=== PATIENT | female | born 2000 | race African-American/Black ===

== ENCOUNTER 2021-08-09 18:23 | Emergency (ER) | payer SELFPAY ==
--- OUTSIDE RECORDS SUMMARY | 2021-08-09 18:29 | XMS REPORT | Continuity of Care Document ---
:2000 Author Organization [facility] t Address [address] [place] [address] Care Team Providers Name Role Phone Pcp, Patient Does Not Have A Primary Care Physician [phone] Aristides CASTORENA Attending Clinician Eleazar MENDEZ Attending Clinician ELEAZAR Attending Clinician Unavailable Doctor Unassigned, Name Attending Clinician Unavailable Fady ELLIOTT Attending Clinician Unavailable Provider, Urgent Care Attending Clinician Unavailable Mariam LANIER Attending Clinician MARIAM Attending Clinician Unavailable Trent VILLASENOR Attending Clinician Unavailable Ang Magallanes DO Attending Clinician Heather MENDEZ Attending Clinician HEATHER Attending Clinician Unavailable Rafa LANIER Attending Clinician Khalif MENDEZ Attending Clinician Fady Guevara Attending Clinician Cassi DANIELLE, A Attending Clinician Unavailable Major LANIER Attending Clinician Princess EARL, S Attending Clinician Payers Payer Name Policy Type Policy Number Effective Date Expiration Date S ource [employer] [place] [id number] 2015 00:00:00 [employer] [place] [id number] 2017 EMPLOYEE PLAN 00:00:00 Problems Condition Condition Condition Status Onset Resolution Last Treating Co mments Source Name Details Category Date Date Treatment Clinician Date Chlamydia Chlamydia Disease Active Overview: Univers 12-20 Formattin ity of 00:00: g of this [place] 00 note Medical might be Branch different from the original. rodolfo pending Supervisio Supervisio Disease Active U nivers n of n of 12-20 [place] of high[place] [facility] Anxiety Anxiety Disease Active Univers 01-08 ity of 00:00: [place] 00 [facility] Allergies, Adverse Reactions, Alerts Allergy Allergy Status Severity Reaction(s) Onset Inactive Treating Comm ents Source Name Type Date Date Clinician No Known DA Active U 2018-08 [facility] [place] NO KNOWN Drug Active Univers ALLERGIE Class ity of S [facility] Social History Social Habit Start Date Stop Date Quantity Comments Source Exposure to Unable to assess Univers ity of SARS-CoV-2 (event) [facility] Alcohol intake 2021-05-24 2021-05-24 0 /d University of 00:00:00 00:00:00 [facility] Cigarettes smoked 2018-12-18 2018-12-18 Univers ity of current (pack per 00:00:00 00:00:00 [facility] ) - Reported Branch Tobacco use and 2018-12-18 2018-12-18 Never used Universit y of exposure 00:00:00 00:00:00 [facility] History of tobacco 2016-12-18 2017-12-18 Cigarette Smoker University of use 00:00:00 00:00:00 [facility] Sex Assigned At 2000 2000 Universit y of 00:00:00 00:00:00 [facility] Smoking Status Start Date Stop Date Source Former smoker 2018-12-18 00:00:2018-12-18 00:00:00 Universi ty of [facility] Medications Ordered Filled Start Stop Current Ordering Indication Dosage Frequency Signature Comments Components Source Medication Medication Date Date Medication? Clinician (SIG) Name Name No known 2020-08 No Univers medications 0-05 ity of 19:04: [place] [facility] SERTraline 2020- No 25mg Take 25 mg Univers (ZOLOFT) 25 02-23 by mouth ity of mg tablet 21:19: 00:00 daily. [place] 09 : [facility] SERTraline 2020- No 25mg Take 25 mg Univers (ZOLOFT) 25 02-23 by mouth ity of mg tablet 21:19: 00:00 daily. [place] 09 : [facility] bromphenira 2020- No [id number] 5mL Take 5 mL Univers mine-pseudo 11-23- by mouth 4 i ty of ephedrine-D 00:00: 04:59 (four) [place] as M (BROMFED 00 :00 times Medical DM) 2-30-10 daily as Bran ch mg/5 mL needed for syrup Congestion /Allergies , Cold symptoms or Cough for up to 10 days. methylPREDN 2020- No [id number] Take by Univers ISolone 4 11-2313 mouth ity of mg tablets 00:00: 04:59 SEE-INSTRU [place] 00 :00 CTIONS for Medical 6 days. Branch follow package directions clotrimazol 2020- Yes [id number] Apply 5 Univers e 1 % 2-22 drops to ity of solution 00:00: the left [place] [address] ear Medical nightly Branch for 1 week. clotrimazol 2020-0 Yes [id number] Apply 5 Univers e 1 % 2-22 drops to ity of solution 00:00: the [place] [address] ear Medical nightly [place] for 1 week. clotrimazol 2020- Yes [id number] Apply 5 Univers e 1 % 2-22 drops to ity of solution 00:00: the [place] [address] ear Medical nightly [place] for 1 week. clotrimazol 2020- Yes [id number] Apply 5 Univers e 1 % 2-22 drops to ity of solution 00:00: the [place] [address] ear Medical nightly Branch for 1 week. clotrimazol Yes [id number] Apply 5 Univers e 1 % 2-22 drops to ity of solution 00:00: the left [place] 00 ear Medical nightly Branch for 1 week. clotrimazol 2020- No [id number] Apply 5 Univers e 1 % 2-22 07-07 drops to ity of solution 00:00: 00:00 the left [place] 00 :00 ear Medical nightly Branch for 1 week. clotrimazol 2020- No [id number] Apply 5 Univers e 1 % 2-22 -07 drops to ity of solution 00:00: 00:00 the left [place] 00 :00 ear Medical nightly Branch for 1 week. predniSONE 2020- No [id number] 40mg Take 2 Univers 20 mg 2-17 02-23 tablets by ity of tablet 00:00: 05:59 mouth [place] 00 :00 daily for Medical 5 days. Branch predniSONE 2020- No [id number] 40mg Take 2 Univers 20 mg 2-17 02-23 tablets by ity of tablet 00:00: 05:59 mouth [place] 00 :00 daily for Medical 5 days. Branch predniSONE 2020- No [id number] 40mg Take 2 Univers 20 mg 2-17 02-23 tablets by ity of tablet 00:00: 05:59 mouth [place] 00 :00 daily for Medical 5 days. Branch acetaminoph 2020- No 1{tbl} 1 tablet, Univers en-codeine 10-05 Oral, ity of (TYLENOL 21:00: 21:00 ONCE, 1 [place] #3) 300-30 00 :00 dose, Tue Medi asia mg tablet 1 10/05/20 at Br anch tablet 1500, KADIE clindamycin 2020- No 600mg 600 mg, IV Univers in 5 % 10-05 Piggyback, ity of dextrose 20:45: 21:15 ONCE, 1 [place] (CLEOCIN) 00 :00 dose, Tue Medic al 600 mg/50 10/05/20 at Bran ch mL IV 1445, 50 piggyback mL
Reas RTU 600 mg on for Anti-Infec tive: Documented Infection< br>Documen indigo Infection Site: HEENT
D uration of Therapy: 7 days
Re stricted use approved by: ED PROVIDER<b r>Reubenti on for Clindamyci n use: [employer] iohexol No 100mL 100 mL, Unive rs (OMNIPAQUE 10-05 Intravenou it y of 350 19:00: 19:00 s, ONCE, 1 [place] BULK-100 00 :00 dose, Tue Medica l mL) 10/05/20 at [place] injection 1300, 100 mL Routine maalox:diph No 15mL 15 mL, Uni vers enhydrAMINE 10-05 Oral, ity of :lidocaine 18:00: 18:22 ONCE, 1 [place] as 2 % viscous 00 :00 dose, Tue Med ical 1:1:1 10/05/20 at [place] (FIRST-MOUT 1200, KADIE HWASH BLM) oral suspension 15 mL ketorolac No 30mg 30 mg, Unive rs (TORADOL) 10-05 Slow IV ity of injection 17:15: 18:04 Push, [place] 30 mg 00 :00 ONCE, 1 Medical dose, [facility] 10/05/20 at 1115, KADIE
Fa culty member approving Restricted medication : EMERGENCY ROOM, dexamethaso No 10mg 10 mg, IV Univers ne 10-05 Push, ity of (DECADRON 17:15: 18:13 ONCE, 1 [place] PHOSPHATE[place] 00 :00 dose, Tue Medi asia injection 10/05/20 at Bran ch 10 mg 1115, STAT clindamycin 2020- No [id number] 450mg Take 3 Univers 150 mg 10-05 capsules ity of capsule 00:00: 05:59 by mouth 3 [place] 00 :00 (three) Medical times Branch daily for 10 days. clindamycin 2020- No [id number] 450mg Take 3 Univers 150 mg 10-05 capsules ity of capsule 00:00: 05:59 by mouth 3 [place] 00 :00 (three) Medical times Branch daily for 10 days. clindamycin 0 2020- No [id number] 450mg Take 3 Univers 150 mg 10-05 -27 capsules ity of capsule 00:00: 05:59 by mouth 3 [place] 00 :00 (three) Medical times Branch daily for 10 days. acetaminoph 2020- No [id number] 1{tbl} Take 1 U nivers en-codeine 2-16 -24 tablet by ity of 300-30 mg 00:00: 05:59 mouth [place] tablet 00 :00 every 6 Medical (six) Branch hours as needed for Pain (scale 7-10) for up to 7 days. Indication s: acute pain acetaminoph 2020- No [id number] 1{tbl} Take 1 U nivers en-codeine 2-16 -24 tablet by ity of 300-30 mg 00:00: 05:59 mouth [place] tablet 00 :00 every 6 Medical (six) Branch hours as needed for Pain (scale 7-10) for up to 7 days. Indication s: acute pain acetaminoph 2020- No [id number] 1{tbl} Take 1 U nivers en-codeine 2-16 -24 tablet by ity of 300-30 mg 00:00: 05:59 mouth [place] tablet 00 :00 every 6 Medical (six) Branch hours as needed for Pain (scale 7-10) for up to 7 days. Indication s: acute pain SERTraline Yes 25mg Take 25 mg U nivers (ZOLOFT) 25 2-11 by mouth ity of mg tablet 00:14: daily. [address] SERTraline Yes 25mg Take 25 mg U nivers (ZOLOFT) 25 2-11 by mouth ity of mg tablet 00:14: daily. [address] SERTraline 0 Yes 25mg Take 25 mg U nivers (ZOLOFT) 25 2-11 by mouth ity of mg tablet 00:14: daily. [address] SERTraline 0 Yes 25mg Take 25 mg U nivers (ZOLOFT) 25 2-11 by mouth ity of mg tablet 00:14: daily. [address] SERTraline Yes 25mg Take 25 mg U nivers (ZOLOFT) 25 2-11 by mouth ity of mg tablet 00:14: daily. [address] SERTraline Yes 25mg Take 25 mg U nivers (ZOLOFT) 25 2-11 by mouth ity of mg tablet 00:14: daily. [address] SERTraline Yes 25mg Take 25 mg U nivers (ZOLOFT) 25 2-11 by mouth ity of mg tablet 00:14: daily. [address] SERTraline Yes 25mg Take 25 mg U nivers (ZOLOFT) 25 2-11 by mouth ity of mg tablet 00:14: daily. [address] SERTraline Yes 25mg Take 25 mg U nivers (ZOLOFT) 25 2-11 by mouth ity of mg tablet 00:14: daily. [address] amoxicillin 2020- No [id number] 500mg Take 1 Univers 500 mg 09-27 tablet by ity of tablet 00:00: 05:59 mouth 2 [place] 00 :00 (two) Medical times Branch daily for 10 days. amoxicillin No [id number] 500mg Take 1 Univers 500 mg 09-27 tablet by ity of tablet 00:00: 05:59 mouth 2 [place] 00 :00 (two) Medical times Branch daily for 10 days. amoxicillin No [id number] 500mg Take 1 Univers 500 mg 09-27 tablet by ity of tablet 00:00: 05:59 mouth 2 [place] 00 :00 (two) Medical times Branch daily for 10 days. amoxicillin 2020- No [id number] 500mg Take 1 Univers 500 mg 09-27 tablet by ity of tablet 00:00: 05:59 mouth 2 [place] 00 :00 (two) Medical times Branch daily for 10 days. maalox:diph 2020- No [id number] 10mL Take 10 mL Univers enhydrAMINE 09-27 by mouth 3 i ty of :lidocaine 00:00: 05:59 (three) [place] 2 % viscous 00 :00 times Medical 1:1:1 daily as Branch needed for Oral mucositis for up to 5 days. carbamide 2020- No [id number] 5[drp] Place 5 Univers peroxide 09-27 [id number] Drops in ity o f (DEBROX) 00:00: 05:59 both ears [place] as 6.5 % otic 00 :00 2 (two) Medica l solution times Branch daily for 5 days. maalox:diph 2020- No [id number] 10mL Take 10 mL Univers enhydrAMINE 09-27 by mouth 3 i ty of :lidocaine 00:00: 05:59 (three) [place] 2 % viscous 00 :00 times Medical 1:1:1 daily as Branch needed for Oral mucositis for up to 5 days. carbamide 2020- No [id number] 5[drp] Place 5 Univers peroxide 09-27 [id number] Drops in ity o f (DEBROX) 00:00: 05:59 both ears [place] 6.5 % otic 00 :00 2 (two) Medica l solution times Branch daily for 5 days. cyclobenzap 2019-08- No 10mg 10 mg, Uni vers rine 0-18 10-18 Oral, ONCE ity of (FLEXERIL) 21:00: 20:34 NOW, 1 [place] tablet 10 00 :00 dose, Sun Medic al mg 06/06/20 Branch at 1600, KADIE ketorolac 2019-08- No 60mg 60 mg, Unive rs (TORADOL) 0-18 10-18 Intramuscu ity of injection 21:00: 20:34 [place], ONCE, [place] 60 mg 00 :00 1 dose, Medical Sun Branch 06/06/20 at 1600, KADIE
Fa culty member approving Restricted medication : EMERGENCY ROOM, dexamethaso 2019-08- No 10mg 10 mg, Uni vers ne 0-18 10-18 Intramuscu ity of (DECADRON 21:00: 20:35 lar, ONCE, [place] PHOSPHATE) 00 :00 1 dose, Medica l injection Sun Branch 10 mg 06/06/20 at 1600, STAT ibuprofen 2019-08 Yes [id number] 800mg Take 1 U nivers 800 mg 0-18 tablet by ity of tablet 00:00: mouth [place] 00 every 8 Medical (eight) Branch hours as needed for Pain (scale 4-6). cyclobenzap 2019-08 Yes [id number] 10mg Take 1 Univers rine 10 mg 0-18 tablet by ity of tablet 00:00: mouth 3 [place] 00 (three) Medical times Branch daily as needed for Muscle Spasms. ibuprofen 2020-1 Yes [id number] 800mg Take 1 U nivers 800 mg 0-18 tablet by ity of tablet 00:00: mouth [place] 00 every 8 Medical (eight) Branch hours as needed for Pain (scale 4-6). cyclobenzap 2020-1 Yes [id number] 10mg Take 1 Univers rine 10 mg 0-18 tablet by ity of tablet 00:00: mouth 3 [place] 00 (three) Medical times Branch daily as needed for Muscle Spasms. ibuprofen 2020-1 Yes [id number] 800mg Take 1 U nivers 800 mg 0-18 tablet by ity of tablet 00:00: mouth [place] 00 every 8 Medical (eight) Branch hours as needed for Pain (scale 4-6). cyclobenzap 2020-1 Yes [id number] 10mg Take 1 Univers rine 10 mg 0-18 tablet by ity of tablet 00:00: mouth 3 [place] 00 (three) Medical times Branch daily as needed for Muscle Spasms. ibuprofen 2020-1 Yes [id number] 800mg Take 1 U nivers 800 mg 0-18 tablet by ity of tablet 00:00: mouth [place] 00 every 8 Medical (eight) Branch hours as needed for Pain (scale 4-6). cyclobenzap 2020-1 Yes [id number] 10mg Take 1 Univers rine 10 mg 0-18 tablet by ity of tablet 00:00: mouth 3 00 (three) Medical times Branch daily as needed for Muscle Spasms. ibuprofen 2020-1 Yes [id number] 800mg Take 1 U nivers 800 mg 0-18 tablet by ity of tablet 00:00: mouth [place] 00 every 8 Medical (eight) Branch hours as needed for Pain (scale 4-6). cyclobenzap 2020-1 Yes [id number] 10mg Take 1 Univers rine 10 mg 0-18 tablet by ity of tablet 00:00: mouth 3 [place] 00 (three) Medical times Branch daily as needed for Muscle Spasms. ibuprofen 2020-1 Yes [id number] 800mg Take 1 U nivers 800 mg 0-18 tablet by ity of tablet 00:00: mouth [place] 00 every 8 Medical (eight) Branch hours as needed for Pain (scale 4-6). cyclobenzap 2020-1 Yes [id number] 10mg Take 1 Univers rine 10 mg 0-18 tablet by ity of tablet 00:00: mouth 3 [place] 00 (three) Medical times Branch daily as needed for Muscle Spasms. ibuprofen 2019- Yes [id number] 800mg Take 1 U nivers 800 mg 0-18 tablet by ity of tablet 00:00: mouth [place] 00 every 8 Medical (eight) Branch hours as needed for Pain (scale 4-6). cyclobenzap 2019- Yes [id number] 10mg Take 1 Univers rine 10 mg 0-18 tablet by ity of tablet 00:00: mouth 3 [place] 00 (three) Medical times Branch daily as needed for Muscle Spasms. ibuprofen 2019-08 Yes [id number] 800mg Take 1 U nivers 800 mg 0-18 tablet by ity of tablet 00:00: mouth [place] 00 every 8 Medical (eight) Branch hours as needed for Pain (scale 4-6). cyclobenzap 2019- Yes [id number] 10mg Take 1 Univers rine 10 mg 0-18 tablet by ity of tablet 00:00: mouth 3 00 (three) Medical times Branch daily as needed for Muscle Spasms. ibuprofen 2019-08 Yes [id number] 800mg Take 1 U nivers 800 mg 0-18 tablet by ity of tablet 00:00: mouth [place] 00 every 8 Medical (eight) Branch hours as needed for Pain (scale 4-6). cyclobenzap 2019- Yes [id number] 10mg Take 1 Univers rine 10 mg 0-18 tablet by ity of tablet 00:00: mouth 3 00 (three) Medical times Branch daily as needed for Muscle Spasms. ibuprofen 2019- Yes [id number] 800mg Take 1 U nivers 800 mg 0-18 tablet by ity of tablet 00:00: mouth [place] 00 every 8 Medical (eight) Branch hours as needed for Pain (scale 4-6). cyclobenzap 2019- Yes [id number] 10mg Take 1 Univers rine 10 mg 0-18 tablet by ity of tablet 00:00: mouth 3 00 (three) Medical times Branch daily as needed for Muscle Spasms. ibuprofen 2019-08- No [id number] 800mg Take 1 Univers 800 mg 0-18 07-07 tablet by ity of tablet 00:00: 00:00 mouth [place] 00 :00 every 8 Medical (eight) Branch hours as needed for Pain (scale 4-6). cyclobenzap 2019-08- No [id number] 10mg Take 1 Univers rine 10 mg 0-18 07-07 tablet by ity of tablet 00:00: 00:00 mouth 3 [place] 00 :00 (three) Medical times Branch daily as needed for Muscle Spasms. ibuprofen 2019-08- No [id number] 800mg Take 1 Univers 800 mg 0-18 07-07 tablet by ity of tablet 00:00: 00:00 mouth [place] 00 :00 every 8 Medical (eight) Branch hours as needed for Pain (scale 4-6). cyclobenzap 2019-08- No [id number] 10mg Take 1 Univers rine 10 mg 0-18 07-07 tablet by ity of tablet 00:00: 00:00 mouth 3 [place] 00 :00 (three) Medical times Branch daily as needed for Muscle Spasms. SERTraline 2020-0 Yes 25mg Take 25 mg U nivers (ZOLOFT) 25 8-11 by mouth ity of mg tablet 15:12: daily. [address] SERTraline 2020-0 Yes 25mg Take 25 mg U nivers (ZOLOFT) 25 8-11 by mouth ity of mg tablet 15:12: daily. [address] SERTraline 2020-0 Yes 25mg Take 25 mg U nivers (ZOLOFT) 25 8-11 by mouth ity of mg tablet 15:12: daily. [address] SERTraline 2020-0 Yes 25mg Take 25 mg U nivers (ZOLOFT) 25 8-11 by mouth ity of mg tablet 15:12: daily. [address] amoxicillin 2020-0 Yes [id number] 875mg Take 1 Univers 875 mg 7-11 tablet by ity of tablet 00:00: mouth 2 [place] 00 (two) Medical times Branch daily. amoxicillin 2020-0 Yes [id number] 875mg Take 1 Univers 875 mg 7-11 tablet by ity of tablet 00:00: mouth 2 [place] 00 (two) Medical times Branch daily. amoxicillin 2020-0 Yes [id number] 875mg Take 1 Univers 875 mg 7-11 tablet by ity of tablet 00:00: mouth 2 [place] 00 (two) Medical times Branch daily. amoxicillin 2020-0 Yes [id number] 875mg Take 1 Univers 875 mg 7-11 tablet by ity of tablet 00:00: mouth 2 [place] 00 (two) Medical times Branch daily. amoxicillin 2020-0 Yes [id number] 875mg Take 1 Univers 875 mg 7-11 tablet by ity of tablet 00:00: mouth 2 [place] 00 (two) Medical times Branch daily. amoxicillin 2020-0 Yes [id number] 875mg Take 1 Univers 875 mg 7-11 tablet by ity of tablet 00:00: mouth 2 [place] 00 (two) Medical times Branch daily. predniSONE 2020-0 2020- No [id number] 40mg Take 2 U nivers 20 mg 7-11 07-17 tablets by ity of tablet 00:00: 04:59 mouth [place] 00 :00 every Medical morning Branch for 5 days. predniSONE 2020-0 2020- No [id number] 40mg Take 2 U nivers 20 mg 7-11 07-17 tablets by ity of tablet 00:00: 04:59 mouth [place] 00 :00 every Medical morning Branch for 5 days. doxylamine- Yes [id number] 2{tbl} Take 2 Univers pyridoxine, 5-21 tablets by it y of vit B6, 00:00: mouth at [place] ([facility]) 00 bedtime as Med ical 10-10 mg needed for Branc h per tablet Nausea and Vomiting (N/V). doxylamine- Yes [id number] 2{tbl} Take 2 Univers pyridoxine, 5-21 tablets by it y of vit B6, 00:00: mouth at [place] ([facility]) 00 bedtime as Med ical 10-10 mg needed for Branc h per tablet Nausea and Vomiting (N/V). doxylamine- Yes [id number] 2{tbl} Take 2 Univers pyridoxine, 5-21 tablets by it y of vit B6, 00:00: mouth at [place] ([facility] 00 bedtime as Med ical 10-10 mg needed for Branc h per tablet Nausea and Vomiting (N/V). doxylamine- Yes [id number] 2{tbl} Take 2 Univers pyridoxine, 5-21 tablets by it y of vit B6, 00:00: mouth at [place] ([facility] 00 bedtime as Med ical 10-10 mg needed for Branc h per tablet Nausea and Vomiting (N/V). doxylamine- Yes [id number] 2{tbl} Take 2 Univers pyridoxine, 5-21 tablets by it y of vit B6, 00:00: mouth at [place] ([facility]) 00 bedtime as Med ical 10-10 mg needed for Branc h per tablet Nausea and Vomiting (N/V). doxylamine- Yes [id number] 2{tbl} Take 2 Univers pyridoxine, 5-21 tablets by it y of vit B6, 00:00: mouth at [place] [facility] bedtime as Med ical 10-10 mg needed for Branc h per tablet Nausea and Vomiting (N/V). doxylamine- Yes [id number] 2{tbl} Take 2 Univers pyridoxine, 5-21 tablets by it y of vit B6, 00:00: mouth at [place] ([facility]) 00 bedtime as Med ical 10-10 mg needed for Branc h per tablet Nausea and Vomiting (N/V). doxylamine- Yes [id number] 2{tbl} Take 2 Univers pyridoxine, 5-21 tablets by it y of vit B6, 00:00: mouth at [place] ([facility]) 00 bedtime as Med ical 10-10 mg needed for Branc h per tablet Nausea and Vomiting (N/V). doxylamine- Yes [id number] 2{tbl} Take 2 Univers pyridoxine, 5-21 tablets by it y of vit B6, 00:00: mouth at [place] ([facility]) 00 bedtime as Med ical 10-10 mg needed for Branc h per tablet Nausea and Vomiting (N/V). doxylamine- Yes [id number] 2{tbl} Take 2 Univers pyridoxine, 5-21 tablets by it y of vit B6, 00:00: mouth at [place] ([facility]) 00 bedtime as Med ical 10-10 mg needed for Branc h per tablet Nausea and Vomiting (N/V). doxylamine- Yes [id number] 2{tbl} Take 2 Univers pyridoxine, 5-21 tablets by it y of vit B6, 00:00: mouth at [place] ([facility]) 00 bedtime as Med ical 10-10 mg needed for Branc h per tablet Nausea and Vomiting (N/V). doxylamine- Yes [id number] 2{tbl} Take 2 Univers pyridoxine, 5-21 tablets by it y of vit B6, 00:00: mouth at [facility]) 00 bedtime as Med ical 10-10 mg needed for Branc h per tablet Nausea and Vomiting (N/V). doxylamine- Yes [id number] 2{tbl} Take 2 Univers pyridoxine, 5-21 tablets by it y of vit B6, 00:00: mouth at [place] ([facility]) 00 bedtime as Med ical 10-10 mg needed for Branc h per tablet Nausea and Vomiting (N/V). doxylamine- Yes [id number] 2{tbl} Take 2 Univers pyridoxine, 5-21 tablets by it y of vit B6, 00:00: mouth at [facility]) 00 bedtime as Med ical 10-10 mg needed for Branc h per tablet Nausea and Vomiting (N/V). doxylamine- Yes [id number] 2{tbl} Take 2 Univers pyridoxine, 5-21 tablets by it y of vit B6, 00:00: mouth at [facility]) 00 bedtime as Med ical 10-10 mg needed for Branc h per tablet Nausea and Vomiting (N/V). doxylamine- 2020- No [id number] 2{tbl} Take 2 Univers pyridoxine, 5-21 07-07 tablets by i ty of vit B6, 00:00: 00:00 mouth at [place] ([facility]) 00 :00 bedtime as Med ical 10-10 mg needed for Branc h per tablet Nausea and Vomiting (N/V). doxylamine- 2020- No [id number] 2{tbl} Take 2 Univers pyridoxine, 5-21 07-07 tablets by i ty of vit B6, 00:00: 00:00 mouth at [facility]) 00 :00 bedtime as Med ical 10-10 mg needed for Branc h per tablet Nausea and Vomiting (N/V). [id number]- 2019-0 Yes [id number] 1{tbl} Take 1 Univers iron-folic 5-01 tablet by ity of acid-dha 00:00: mouth [place] (PRENA1 00 daily. Medical KAMILAH) Branch 30-1.4-200 mg CpID [id number]- 2019-0 Yes [id number] 1{tbl} Take 1 Univers iron-folic 5-01 tablet by ity of acid-dha 00:00: mouth [place] (PRENA1 00 daily. Medical KAMILAH) Branch 30-1.4-200 mg CpID [id number]- 2019-0 Yes [id number] 1{tbl} Take 1 Univers iron-folic 5-01 tablet by ity of acid-dha 00:00: mouth [place] (PRENA1 00 daily. Medical KAMILAH) Branch 30-1.4-200 mg CpID [id number]- 2019-0 Yes [id number] 1{tbl} Take 1 Univers iron-folic 5-01 tablet by ity of acid-dha 00:00: mouth [place] (PRENA1 00 daily. Medical KAMILAH) Branch 30-1.4-200 mg CpID [id number]- 2019-0 Yes [id number] 1{tbl} Take 1 Univers iron-folic 5-01 tablet by ity of acid-dha 00:00: mouth [place] (PRENA1 00 daily. Medical KAMILAH) Branch 30-1.4-200 mg CpID [id number]- 2019-0 Yes [id number] 1{tbl} Take 1 Univers iron-folic 5-01 tablet by ity of acid-dha 00:00: mouth [place] (PRENA1 00 daily. Medical KAMILAH) Branch 30-1.4-200 mg CpID [id number]- 2019-0 Yes [id number] 1{tbl} Take 1 Univers iron-folic 5-01 tablet by ity of acid-dha 00:00: mouth [place] (PRENA1 00 daily. Medical KAMILAH) Branch 30-1.4-200 mg CpID - 2019-0 Yes [id number] 1{tbl} Take 1 Univers iron-folic 5-01 tablet by ity of acid-dha 00:00: mouth [place] (PRENA1 00 daily. Medical KAMILAH) Branch 30-1.4-200 mg CpID [id number]- 2019-0 Yes [id number] 1{tbl} Take 1 Univers iron-folic 5-01 tablet by ity of acid-dha 00:00: mouth [place] (PRENA1 00 daily. Medical KAMILAH) Branch 30-1.4-200 mg CpID [id number] 2019-0 Yes [id number] 1{tbl} Take 1 Univers iron-folic 5-01 tablet by ity of acid-dha 00:00: mouth [place] (PRENA1 00 daily. Medical KAMILAH) Branch 30-1.4-200 mg CpID [id number] Yes [id number] 1{tbl} Take 1 Univers iron-folic 5-01 tablet by ity of acid-dha 00:00: mouth [place] (PRENA1 00 daily. Medical KAMILAH) Branch 30-1.4-200 mg CpID [id number] Yes [id number] 1{tbl} Take 1 Univers iron-folic 5-01 tablet by ity of acid-dha 00:00: mouth [place] (PRENA1 00 daily. Medical KAMILAH) Branch 30-1.4-200 mg CpID [id number] Yes [id number] 1{tbl} Take 1 Univers iron-folic 5-01 tablet by ity of acid-dha 00:00: mouth [place] (PRENA1 00 daily. Medical KAMILAH) Branch 30-1.4-200 mg CpID [id number] Yes [id number] 1{tbl} Take 1 Univers iron-folic 5-01 tablet by ity of acid-dha 00:00: mouth [place] (PRENA1 00 daily. Medical KAMILAH) Branch 30-1.4-200 mg CpID Yes [id number] 1{tbl} Take 1 Univers iron-folic 5-01 tablet by ity of acid-dha 00:00: mouth [place] (PRENA1 00 daily. Medical KAMILAH) Branch 30-1.4-200 mg CpID [id number] 2021- No [id number] 1{tbl} Take 1 Univers iron-folic 5-01 07-07 tablet by ity of acid-dha 00:00: 00:00 mouth [place] (PRENA1 00 :00 daily. Medical KAMILAH) Branch 30-1.4-200 mg CpID [id number] 2021- No [id number] 1{tbl} Take 1 Univers iron-folic 5-01 07-07 tablet by ity of acid-dha 00:00: 00:00 mouth [place] (PRENA1 00 :00 daily. Medical NAHMA) Branch 30-1.4-200 mg CpID SERTraline 2018-0 Yes 25mg Take 25 mg U nivers (ZOLOFT) 25 907 by mouth ity of mg tablet 01:33: daily. [address] SERTraline 2018-0 Yes 25mg Take 25 mg U nivers (ZOLOFT) 25 907 by mouth ity of mg tablet 01:33: daily. [address] Immunizations Ordered Filled Immunization Date Status Comments [facility] e Immunization Name Name SARS-COV-2 COVID-19 2020-12-04 Completed Unive rsity of PFIZER VACCINE 00:00:00 [facility] SARS-COV-2 COVID-19 2020-12-04 Completed Unive rsity of PFIZER VACCINE 00:00:00 [facility] SARS-COV-2 COVID-19 2020-12-04 Completed Unive rsity of PFIZER VACCINE 00:00:00 [facility] SARS-COV-2 COVID-19 2020-12-04 Completed Unive rsity of PFIZER VACCINE 00:00:00 [facility] SARS-COV-2 COVID-19 2020-11-14 Completed Unive rsity of PFIZER VACCINE 00:00:00 [facility] SARS-COV-2 COVID-19 2020-11-14 Completed Unive rsity of PFIZER VACCINE 00:00:00 [facility] SARS-COV-2 COVID-19 2020-11-14 Completed Unive rsity of PFIZER VACCINE 00:00:00 [facility] SARS-COV-2 COVID-19 2020-11-14 Completed Unive rsity of PFIZER VACCINE 00:00:00 [facility] SARS-COV-2 COVID-19 2020-11-14 Completed Unive rsity of PFIZER VACCINE 00:00:00 [facility] Vital Signs Vital Name Observation Time Observation Value Comments Source Systolic blood 2021-05-24 23:58:00 122 mm[Hg] Univer sity of pressure [facility] Diastolic blood 2021-05-24 23:58:00 79 mm[Hg] Unive rsity of pressure [facility] Heart rate 2021-05-24 23:58:00 80 /min [facility] Body temperature 2021-05-24 23:58:00 37.11 Annette [facility] [place] [facility] Respiratory rate 2021-05-24 23:58:00 18 /min [facility] [place] [facility] Body height 2021-05-24 23:58:00 154.9 cm [facility] [place] [facility] Body weight 2021-05-24 23:58:00 61.236 kg [facility] [place] [facility] BMI 2021-05-24 23:58:00 25.51 kg/m2 [facility] [place] [facility] Oxygen saturation in 2021-05-24 23:58:00 100 /min [facility] of Arterial blood by [place] [facility] Pulse oximetry Branch Body weight 2021-02-23 21:17:00 61.236 kg [facility] [place] [facility] Systolic blood 2020-11-23 19:56:00 121 mm[Hg] Univer [facility]ity [facility] [place] [facility] Diastolic blood 2020-11-23 19:56:00 64 mm[Hg] Unive rsity of [facility] [place] [facility] Heart rate 2020-11-23 19:56:00 86 /min [facility] [place] [facility] Body temperature 2020-11-23 19:56:00 37.28 Annette [facility] [place] [facility] [place] [facility] Respiratory rate 2020-11-23 19:56:00 16 /min [facility] [place] [facility] Body height 2020-11-23 19:56:00 154.9 cm [facility] [place] [facility] Body weight 2020-11-23 19:56:00 58.968 kg [facility] [place] [facility] BMI 2020-11-23 19:56:00 24.56 kg/m2 [facility] [place] [facility] Oxygen saturation in 2020-11-23 19:56:00 97 /min University of Arterial blood by [place] [facility] Pulse oximetry Branch Body temperature 2020-10-11 14:27:00 36.61 Annette [facility] [place] [facility] [place] [facility] Body height 2020-10-11 14:27:00 154.9 cm [facility] [place] [facility] Body weight 2020-10-11 14:27:00 60.147 kg [facility] [place] [facility] BMI 2020-10-11 14:27:00 25.05 kg/m2 [facility] [place] [facility] Systolic blood 2020-10-05 15:46:00 142 mm[Hg] Univer sity of pressure [place] [facility] Diastolic blood 2020-10-05 15:46:00 92 mm[Hg] Unive rsity of pressure [place] [facility] Heart rate 2020-10-05 15:46:00 84 /min [facility] [place] [facility] Body temperature 2020-10-05 15:46:00 36.61 Annette [facility] [place] [facility] Respiratory rate 2020-10-05 15:46:00 20 /min [facility] [place] [facility] Body weight 2020-10-05 15:46:00 63.504 kg [facility] [place] [facility] BMI 2020-10-05 15:46:00 26.45 kg/m2 [facility] [place] [facility] Oxygen saturation in 2020-10-05 15:46:00 99 /min [facility] Arterial blood by [place] [facility] Pulse oximetry Branch Systolic blood 2020-09-30 00:09:00 152 mm[Hg] Univer [facility]ity of pressure [place] [facility] Diastolic blood 2020-09-30 00:09:00 91 mm[Hg] Unive rsity of pressure [place] [facility] Heart rate 2020-09-30 00:05:00 61 /min [facility] [place] [facility] Respiratory rate 2020-09-30 00:05:00 14 /min [facility] [place] [facility] Body height 2020-09-30 00:05:00 154.9 cm [facility] [place] [facility] Body weight 2020-09-30 00:05:00 58.968 kg [facility] [place] [facility] BMI 2020-09-30 00:05:00 24.56 kg/m2 [facility] [place] [facility] Oxygen saturation in 2020-09-30 00:05:00 99 /min [facility] Arterial blood by [place] [facility] Pulse oximetry Branch Systolic blood 2020-06-06 20:48:00 130 mm[Hg] Univer sity of pressure [place] [facility] Diastolic blood 2020-06-06 20:48:00 72 mm[Hg] Unive rsity of pressure [place] [facility] Heart rate 2020-06-06 20:48:00 87 /min [facility] [place] [facility] Body temperature 2020-06-06 20:48:00 37.17 Annette [facility] [place] [facility] Respiratory rate 2020-06-06 20:48:00 17 /min Univ ersity of [facility] Oxygen saturation in 2020-06-06 20:48:00 100 /min University of Arterial blood by [facility] Pulse oximetry Branch Body height 2020-06-06 19:10:00 154.9 cm Universi ty of [facility] Body weight 2020-06-06 19:10:00 65.772 kg Universi ty of [facility] BMI 2020-06-06 19:10:00 27.40 kg/m2 Universi ty of [facility] Body temperature 2020-03-30 15:13:00 36.5 Annette Univ ers[facility] of [facility] Body height 2020-03-30 15:13:00 154.9 cm Universi ty of [facility] Body weight 2020-03-30 15:13:00 65.772 kg Universi ty of [facility] BMI 2020-03-30 15:13:00 27.40 kg/m2 Universi ty of [facility] Systolic blood 2020-02-28 23:12:00 120 mm[Hg] Univer sity of pressure [facility] Diastolic blood 2020-02-28 23:12:00 70 mm[Hg] Unive rsity of pressure [facility] Heart rate 2020-02-28 23:12:00 86 /min Universi ty of [facility] Body temperature 2020-02-28 23:12:00 37.72 Annette Univ ersity of [facility] Respiratory rate 2020-02-28 23:12:00 18 /min Univ ersity of [facility] Body weight 2020-02-28 23:12:00 68.04 kg Universi ty of [facility] Oxygen saturation in 2020-02-28 23:12:00 98 /min University of Arterial blood by [facility] Pulse oximetry Branch Procedures Procedure Date / Time Performing Clinician Source Performed POCT RAPID FLU A AND B 2021-05-25 00:11:00 Sonia Irving [facility] AUTHORIZATION FOR 2021-02-07 05:01:00 Doctor Unassigned, No [facility] Name Medical Branch CT SOFT TISSUE NECK W 2020-10-05 18:53:49 [facility] BASIC METABOLIC PANEL 2020-10-05 17:53:00 Manasa Craig [facility] (NA, K, CL, CO2, Medical Branch GLUCOSE, BUN, CREATININE, CA) CBC WITH DIFF 2020-10-05 17:53:00 Manasa Craig [facility] CONSENT/REFUSAL FOR 2020-10-05 15:31:11 Doctor Unassigned, No [facility] [place] [facility] Name [facility] Branch POCT TEST 2020-06-06 20:33:00 Manasa Craig [facility] CONSENT/REFUSAL FOR 2020-06-06 18:52:09 Doctor Unassigned, No [facility] [place] [facility] Name Medical Branch RAPID STREP SCREEN FOR 2020-02-29 00:14:00 Ozzie Gonsalves [facility] GROUP A Medical Branch ASSIGNMENT OF BENEFITS 2020-02-28 23:22:55 Doctor Unassigned, No [facility] Branch NOTICE OF PRIVACY 2020-02-28 23:22:43 Doctor Unassigned, No [facility]SENT/REFUSAL FOR 2020-02-28 23:22:33 Doctor Unassigned, No [facility] [place] [facility] Name [facility] Branch NOTICE OF PRIVACY 2020-02-28 22:52:21 Doctor Unassigned, No [facility] CONSENT/REFUSAL FOR 2020-02-28 22:52:06 Doctor Unassigned, No [facility] [place] [facility] Name [facility] Encounters Start End Encounter Admission Attending Care Care Encounter Source Date/Time Date/Time Type Type Clinicians Facility Department ID 2021-06-18 Emergency [facility] [id number] Univers 23:42:02 ity [facility] 2021-06-17 Emergency [facility] [id number] Univers 23:34:52 ity [facility] 2021-06-17 Emergency [facility] [id number] [facility]-24 2021-05-24 [facility] [id number] Univers 18:54:52 19:18:28 Care [facility] [id number] it y of [place] [id number] Jose as Marco?Blea [phone] [place] yasir [address] Medical Office Building 2021-05-24 2021-05-24 Outpatient R [facility] [id number] Univers 19:00:00 19:00:00 [id number] ity [facility] 2021-05-24 2021-05-24 Outpatient R [facility] [id number] Univers 19:00:00 19:00:00 ity [facility] 2021-02-23 2021-02-23 Office [facility] [id number] Univers 16:08:05 16:23:05 Visit Tiffanie OVALLES [id number] i ty of [facility] [id number] [id number] [facility] [address] [place] 2021-02-23 2021-02-23 Outpatient [facility] [id number] Univers 16:15:00 16:15:00 TIFFANIE [id number] [facility] 2021-02-23 2021-02-23 Outpatient R [facility] [id number] Univers 16:15:00 16:15:00 TIFFANIE [facility] 2021-02-07 2021-02-07 Orders Doctor ADRIANA 1.2.840.114 [id number] Univers 00:00:00 00:00:00 Only Unassigned, RANDALL [id number] ity of [place] [facility] 4.2.7.2.686 Jose as [phone] [facility] 009 Branch 2021-01-19 2021-01-19 Outpatient R CHERI [facility] [id number] Univers 20:20:00 20:20:00 BEVERLY ity o f [facility] 2021-01-19 2021-01-19 Outpatient R [facility] [id number] Univers 20:00:00 20:00:00 [id number] ity [facility] 2020-12-05 2020-12-05 Outpatient [facility] [id number] Univers 10:20:00 10:20:00 ity [facility] 2020-12-04 2020-12-04 Outpatient [facility] [id number] Univers 10:20:00 10:20:00 ity [facility] 2020-11-23 2020-11-23 Urgent Provider, [facility] [id number] Univers 14:44:43 15:04:43 Care Mariam Lakia [facility] [id number] ity of [place] [id number] Jose as Savi [phone] [place] dical nal 044 Branch Office Building One 2020-11-23 2020-11-23 Outpatient [facility] [id number] Univers 14:40:00 14:40:00 [id number] [facility] 2020-11-23 2020-11-23 Outpatient R MARIAM [facility] [id number] Univers 14:40:00 14:40:00 LAKIA [facility] 2020-11-14 2020-11-14 Outpatient Liz VILLASENOR [facility] [id number] Univers 10:00:00 10:00:00 ANDREA [facility] 2020-11-09 2020-11-09 Patient Elpidio [facility] [id number] Univers 00:00:00 00:00:00 Outreach Wong LYN [id number] i ty of [facility] [id number] Josetapan terry KELLY [phone] [place] dical [address] 2020-10-11 2020-10-11 Office Heather [facility] 1.2.840.114 [id number] Univers 08:21:34 08:51:34 Visit Reji OVALLES [id number] i [id number] [id number] [facility] as[place] 144 Branch 2020-10-11 2020-10-11 Outpatient Liz ROMERO [facility] [id number] Univers 08:00:00 08:00:00 REJI [id number] [facility] 2020-10-11 2020-10-11 Outpatient Liz [facility] [id number] Univers 08:00:00 08:00:00 REJI [facility] 2020-10-05 2020-10-05 Emergency [facility] 1.2.840.114 [id number] Univers 09:48:00 15:35:00 Manasa [place] [id number] i ty of [place] [id number] [facility] [phone] [facility] 084 Branch 2020-10-05 2020-10-05 Orders Doctor ADRIANA 1.2.840.114 [id number] Univers 00:00:00 00:00:00 Only Unassigned, RANDALL [id number] ity [facility] [id number] Jose as [phone] [facility] 009 Branch 2020-10-01 2020-10-01 Outpatient [facility] [id number] Univers 10:00:00 10:00:00 TIFFANIE [id number] ity [facility] 2020-10-01 2020-10-01 Outpatient Liz [facility] [id number] Univers 10:00:00 10:00:00 [facility] 2020-09-30 2020-09-30 Outpatient [facility] [id number] Univers 15:40:00 15:40:00 [id number] [facility] 2020-09-29 2020-09-29 Urgent CuadraAdriana hassan [facility] 1.2.840.114 [id number] Univers 18:03:54 18:43:59 Care Beverly Elliott [facility] [id number] ity [facility] [id number] Jose as Professio [phone] [address] Office Building One 2020-09-29 2020-09-29 Outpatient R [facility] [id number] Univers 18:00:00 18:00:00 [id number] ity [facility] 2020-09-29 2020-09-29 Outpatient R [facility] [id number] Univers 18:00:00 18:00:00 ity [facility] 2020-09-27 2020-09-27 Outpatient R [facility] [id number] Univers 09:40:00 09:40:00 [id number] ity of [facility] 2020-09-27 2020-09-27 Outpatient R [facility] [id number] Univers 09:40:00 09:40:00 ity of [facility] 2020-06-06 2020-06-06 Emergency [facility] 1.2.840.114 [id number] Univers 14:14:00 16:01:00 Manasa [place] [id number] i [id number] [phone] [address] 2020-06-06 2020-06-06 Outpatient R [facility] [id number] Univers 13:30:00 13:30:00 [id number] ity [facility] 2020-03-30 2020-03-30 Office [facility] 1.2.840.114 [id number] Univers 10:03:53 10:33:53 Visit Tiffanie OVALLES [id number] i ty of [facility] [id number] [phone] [facility] 144 Branch 2020-03-30 2020-03-30 Outpatient R [facility] [id number] Univers 10:15:00 10:15:00 TIFFANIE [id number] ity of [facility] 2020-03-30 2020-03-30 Outpatient R [facility] [id number] Univers 10:15:00 10:15:00 TIFFANIE ity of [facility] 2020-03-02 2020-03-02 Transition Ramiro Ye 1.2.840.114 [id number] Univers 00:00:00 00:00:00 of Care Derrick Ayon [id number] ity of [id number] [phone] [facility] 403 Branch 2020-02-28 2020-02-28 Emergency Ozzie Gonsalves [facility] 1.2.840. 114 [id number] Univers 18:14:57 20:55:00 Kiki Sánchez 350.1.13.10 [place] [id number] [phone] Medi asia 084 Branch Results Test Description Test Time Test Comments Results Result Comments Source POCT RAPID FLU A AND B TEST 2021-05-25 00:26:00 Test Item Value Reference Range Interpretation Comme nts POCT INFLUENZA A (test code = neg Negative - Negative 3840) POCT INFLUENZA B (test code = neg Negative - Negative 3841) THOMAS (test code = THOMAS) accurate development and interpretation of all internal controls Lab Interpretation (test code = Normal 44565-6) [facility] [id number] 19:01:52 Small peritonsillar abscess in the left palatine tonsillar region.Otherwise findings consistent with acute tonsillitis. 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 COMPARISON: None. FINDINGS: A small peripherally enhancing collection is seen on the left palatinetonsillar region measuring 1.3 x 1.4 cm (2:32). Soft tissue thickening inthe nasopharynx, lingual and palatine tonsils is consistent with reactivelymphoid hyperplasia. The larynx is unremarkable. Dental amalgam artifact, limits evaluation ofthe oral cavity. Within these limitations, no acute findings are seen. The thyroid gland is unremarkable. The parotid and submandibular glandsdemonstrate no focal lesions. Mildly enlarged enhancing lymph nodes are seen in the left-sided the neck,likely reactive. No morphologically abnormal lymph node is identified. No abnormal neck masses are seen. 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 Dental amalgam artifact, limits evaluation ofthe oral cavity. Within these limitations, no acute findings are seen.The thyroid gland is unremarkable. The parotid and submandibular glandsdemonstrate no focal lesions.Mildly enlarged enhancing lymph nodes are seen in the left-sided the neck,likely reactive. No morphologically abnormal lymph node isidentified. Noabnormal neck masses are seen. IMPRESSIONSmall peritonsillar abscess in the left palatine tonsillar region.Otherwise findings consistent with acute tonsillitis.Reactive lymph nodes in theleft-sided the neck.[facility] (NA, K, CL, CO2, GLUCOSE, BUN, CREATININE, CA)2020-10-05 18:22:00 Test Item Value Reference Range Interpretation Comments NA (test code = 138 mmol/L 135-145 1364284396) K (test code = 4.4 mmol/L 3.5-5 4219167585) CL (test code = 102 mmol/L 98-108 8202237834) CO2 TOTAL (test code = 26 mmol/L 23-31 2987897175) AGAP (test code = 2-16 7674949267) BUN (test code = 9 mg/dL 7-23 7432235564) GLUCOSE (test code = 95 mg/dL 70-110 3800447697) CREATININE (test code 0.65 mg/dL 0.5-1.04 = 2592663020) CALCIUM (test code = 9.2 mg/dL 8.6-10.6 7239081248) eGFR Calculation mL/min/1.73m2 (Non-) (test code = 7197068679) eGFR Calculation mL/min/1.73m2 () (test code = 1772297221) THOMAS (test code = THOMAS) Association of Glomerular Filtration Rate (GFR) and Staging of Kidney Disease* + -+ + ---+| GFR (mL/min/1.73 m2) ?| With Kidney Damage ?| ?Without Kidney Damage+ -------+ ------+ ---------+| ?>90 ?| ?Stage one ?| ? Normal ?+ --+ -+ ----+| ?60-89 ?| ?Stage two ?| ? Decreased GFR ? + -+ + ---+| ?30-59 ?| ?Stage three ?| ? Stage three ? + -+ + ---+| ?15-29 ?| ?Stage four ? | ? Stage four ?+ --+ -+ ----+| ?<15 (or dialysis) ? ?| ?Stage five ? | ? Stage five ?+ --+ -+ ----+ *Each stage assumes the associated GFR level has been in effect for at least three months. ?Stages 1 to 5, with or without kidney disease, indicate chronic kidney disease. Notes: Determination of stages one and two (with eGFR >59mL/min/1.73 m2) requires estimation of kidney damage for at least three months as defined by structural or functional abnormalities of the kidney, manifested by either:Pathological abnormalities or Markers of kidney damage (including abnormalities in the composition of the blood or urine or abnormalities in imaging tests). [facility] with [id number] 18:10:00 Test Item Value Reference Range Interpretation Comments WBC (test code = See_Comment H [Automated 1064-2) message] The sy stem which generated this result transmitted reference range : 4.30 - 11.10 10*3/?L. The reference range was not used to interpret this result as normal/abnormal . RBC (test code = See_Comment [Automated 699-8) message] The sy stem which generated this result transmitted reference range : 3.93 - 5.25 10*6/?L. The reference range was not used to interpret this result as normal/abnormal . HGB (test code = 13.0 g/dL 11.6-15 718-7) HCT (test code = 40.3 % 35.7-45.2 4544-3) MCV (test code = 89.0 fL 80.6-95.5 787-2) MCH (test code = 28.7 pg 25.9-32.8 785-6) MCHC (test code = 32.3 g/dL 31.6-35.1 786-4) RDW-SD (test code = 41.3 fL 39-49.9 11206-6) RDW-CV (test code = 12.6 % 12-15.5 788-0) PLT (test code = See_Comment [Automated 777-3) message] The sy stem which generated this result transmitted reference range : 166 - 358 10*3/ ?L. The reference r lavelle was not used to interpret this result as normal/abnormal . MPV (test code = 11.1 fL 9.5-12.9 62616-3) NRBC/100 WBC (test See_Comment [Automat ed code = 3064824827) message] The system which generated this result transmitted reference range : 0.0 - 10.0 /100 WBCs. The refer ence range was not u sed to interpret th is result as normal/abnormal . NRBC x10^3 (test code <0.01 See_Comment [Auto mated = 5198489485) message] The s ystem which generated this result transmitted reference range : 10*3/?L. The reference range was not used to interpret this result as normal/abnormal . GRAN MAT (NEUT) % 73.7 % (test code = 770-8) IMM GRAN % (test code 0.30 % = 9775422997) LYMPH % (test code = 17.2 % 736-9) MONO % (test code = 6.9 % 5905-5) EOS % (test code = 1.7 % 713-8) BASO % (test code = 0.2 % 706-2) GRAN MAT x10^3(ANC) 9.18 10*3/uL 1.88-7.09 H (test code = 0116339826) IMM GRAN x10^3 (test 0.04 10*3/uL 0-0.06 code = 1414885637) LYMPH x10^3 (test code 2.14 10*3/uL 1.32-3.29 = 731-0) MONO x10^3 (test code 0.86 10*3/uL 0.33-0.92 = 742-7) EOS x10^3 (test code = 0.21 10*3/uL 0.03-0.39 711-2) BASO x10^3 (test code <0.03 0.01-0.07 = 704-7) Lab Interpretation Abnormal (test code = 31569-9) [facility] [id number] 20:33:00 Test Item Value Reference Range Interpretation Comments POCT PREG (test code = 1605) negative POCT PREG LOT # (test code = 3575) [id number] POCT PREG TEST DATE (test 11/17/2021 code = 3576) Lab Interpretation (test code = Normal 19917-8) [facility] STREP SCREEN FOR GROUP [id number] 00:55:00 Test Item Value Reference Range Interpretation Comments Streptococcus pyogenes (group A) Negative Negative antigen (test code = 52554-7) Lab Interpretation (test code = Normal 10249-5) [facility] [id number] 16:25:00 Test Item Value Reference Range Interpretation Comments PROTHROMBIN TIME PATIENT (test code 10.5 secs 10.4-12.4 N = PTP) THROMBOPLASTIN TIME [id number] 16:25:00 Test Item Value Reference Range Interpretation Comments THROMBOPLASTIN TIME PARTIAL (test 30.4 secs 22-38 N code = PTT) COMPREHENSIVE METABOLIC [id number] 16:02:00 Test Item Value Reference Range Interpretation Comments SODIUM (test code = NA) 143 mEq/L 135-145 N POTASSIUM (test code = K) 3.8 mEq/L 3.5-5.0 N CHLORIDE (test code = CL) 109 mEq/L 100-115 N CARBON DIOXIDE (test code = CO2) 26 mEq/L 22-31 N ANION GAP (test code = GAP) 11.90 10-20 N GLUCOSE (test code = GLU) 100 mg/dL 65-110 N BLOOD UREA NITROGEN (test code = 11 mg/dL 7-18 N BUN) GLOMERULAR FILTRATION RATE (test 93 ml/min >60 N code = GFR) CREATININE (test code = CREAT) 0.8 mg/dL 0.5-1.0 N TOTAL PROTEIN (test code = PROT) 5.6 gm/dL 6.3-8.2 L ALBUMIN (test code = ALB) 2.0 gm/dL 3.4-4.8 L CALCIUM (test code = CA) 8.0 mg/dL 8.4-10.2 L BILIRUBIN TOTAL (test code = BILT) 0.1 mg/dL 0.2-1.0 L SGOT/AST (test code = AST) 28 units/L 15-37 N SGPT/ALT (test code = ALT) 33 units/L 12-78 N ALKALINE PHOSPHATASE TOTAL (test 80 units/L 46-116 N code = ALKP) UA RFLX MICR CULT IF [id number] 16:00:00 Test Item Value Reference Range Interpretation Comments UA COLOR (test code = COLU) YELLOW YELLOW UA APPEARANCE (test code = Slightly-Cloudy CLEAR APPU) UA GLUCOSE DIPSTICK (test NEGATIVE NEG code = DGLUU) UA BILIRUBIN DIPSTICK (test NEGATIVE NEG code = BILU) UA KETONE DIPSTICK (test code NEGATIVE NEG = KETU) UA SPECIFIC GRAVITY (test 1.013 1.001-1.035 N code = SGU) UA BLOOD DIPSTICK (test code 2+ NEG A = PALOMA) UA PH DIPSTICK (test code = 6.0 5-9 LARY) UA PROTEIN DIPSTICK (test 3+ NEG A code = PROU) UA UROBILINIOGEN DIPSTICK NEGATIVE mg/dL NEG (test code = URO) UA NITRITE DIPSTICK (test NEG NEG code = DENAE) UA LEUKOCYTE ESTERASE TRACE NEG A DIPSTICK (test code = LEUU) UA WBC (test code = WBCU) 11-15 #/hpf NONE SEEN A UA RBC (test code = RBCU) 3-5 #/hpf NONE SEEN A UA EPITHELIAL CELLS (test RARE #/HPF RARE-FEW code = EPIU) UA BACTERIA (test code = RARE /HPF RARE-FEW BACU) UA MUCUS (test code = MUCU) RARE NONE SEEN Indication for culture: Suprapubic PainCBC W/AUTO [id number] 15:57:00 Test Item Value Reference Range Interpretation Comments WHITE BLOOD CELL (test code = WBC) 8.6 K/mm3 6.6-12.1 N RED BLOOD CELL (test code = RBC) 3.54 M/mm3 3.45-5.01 N HEMOGLOBIN (test code = HGB) 10.3 g/dL 10.7-13.9 L HEMATOCRIT (test code = HCT) 32.2 % 32.1-42.1 N MEAN CELL VOLUME (test code = MCV) 91 fL 84.1-94.8 N MEAN CELL HGB (test code = MCH) 29.1 pg 27-35 N MEAN CELL HGB CONCETRATION (test 32.0 gm/dL 32.2-34.1 L code = MCHC) RED CELL DISTRIBUTION WIDTH (test 13.8 % 12.4-16.5 N code = RDW) PLATELET COUNT (test code = PLT) 242 K/mm3 133-385 N IMMATURE PLATELET FRACTION (test 0.0 % 0.0-10.8 N code = IPF) MEAN PLATELET VOLUME (test code = 10.7 fl 9.1-12.7 N MPV) NEUTROPHIL % (test code = NT%) 50.7 % 56.5-79.4 L LYMPHOCYTE % (test code = LY%) 36.4 % 14.3-34.3 H MONOCYTE % (test code = MO%) 10.6 % 5.1-10.4 H EOSINOPHIL % (test code = EO%) 1.9 % 0.1-3.0 N BASOPHIL % (test code = BA%) 0.2 % 0.1-1.0 N NEUTROPHIL # (test code = NT#) 4.4 K/mm3 LYMPHOCYTE # (test code = LY#) 3.1 K/mm3 MONOCYTE # (test code = MO#) 0.9 K/mm3 EOSINOPHIL # (test code = EO#) 0.16 K/mm3 BASOPHIL # (test code = BA#) 0.0 K/mm3 RBC MORPHOLOGY REQUIRED (test code NORMAL NORMAL = RBCM) PLATELET MORPHOLOGY REQUIRED (test NORMAL NORMAL code = PLTMR) PLACENTA THIRD [id number] 06:46:00 RUN DATE: 07/01/19 [facility] PAGE 1 RUN TIME: 1341 Specimen Inquiry RUN USER: INTERFACE PATIENT: KATHARINE SHRESTHA LOC: MikeMARCUS U #: [id number] AGE/SX: 18/F ROOM: [facility] RE06/02/19RHIANNON DR: Keri Augustin : 00 BED: A DIS: 06/29/19 STATUS: DIS IN TLOC: SPEC #: [id number] RECD: 06/25/19 STATUS: GAURAV INGRAM #: [id number] CRYSTAL: 06/25/19- SUBM DR: Keri Augustin MD ENTERED: 06/26/19 SP TYPE: PLACIII OTHR DR: Carmen Vela MD ORDERED: LEVEL V SURGICA CODES: [id number] - PLACENTA, NOS COPIES TO: Keri Augustin MD [address] [facility] [address] [place] [address] [email or web address] Lillie Vela [address] [facility] [address] [place] [address] [email or web address] PROCEDURES: LEVEL V SURGICA (Incomplete) TISSUES: PLACENTA, NOS - PLACENTA CLINICAL HISTORY 18 year old, 33.4 weeks, [id number], section, pre-eclampsia, intrauterine growth restriction, chronic abruption, absent end diastoic flow (kr) FINAL DIAGNOSIS Placenta, verde gestation: - third trimester villous architecture with congestion - localized area with increased syncytial knots - no inflammation of umbilical cord or membranes - umbilical cord: insertion 4 cm from margin, 3-vessel, 14 cm length - decreased placental weight:actual 230 gm (less than 10th percentile) COMMENT: 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 CPT Code: 65689 cds/bronwyn dt: 07/01/19 CONTINUED ON NEXT PAGE RUN DATE: 07/01/19 [facility] PAGE 2 RUN TIME: 1341 Specimen Inquiry RUN USER: INTERFACE SPEC #: [id number] PATIENT: FADYKATHARINE #[id number] (Continued) GROSS DESCRIPTION The specimen was received in a container, labeled with the patient's name, unit number and designated "placenta". The following attributes are observed: Cord insertion: 4 cm from margin Cord length: 14 cm Number of vessels: 3 Cord color: Esqueda Other cord findings: Less than 12 twists/10 cm surface findings: Steel blue, wrinkled, and glistening Vasculature: Displays unremarkable blood vasculature Membranes rupture site: 1 cm to margin Membrane color: Esqueda Other membrane findings: Thickened The trimmed placental weight: 230 gm Disk measurement: 16.0 x 12.5 x 2.5 cm in greatest dimension Accessory lobes: None Maternal surface: Lobulated and intact Parenchyma: Red, beefy, and spongy with peripheral fibrosis Parenchyma lesions:None Cassettes: A1 through A4 dixie/bronwyn 06/26/19 @ 1230 Signed Varun Chanel Haroon 07/01/19 0646 END OF REPORT COMPREHENSIVE METABOLIC [id number] 07:46:00 Test Item Value Reference Range Interpretation Comments SODIUM (test code = NA) 141 mEq/L 135-145 N POTASSIUM (test code = K) 4.3 mEq/L 3.5-5.0 N CHLORIDE (test code = CL) 108 mEq/L 100-115 N CARBON DIOXIDE (test code = CO2) 28 mEq/L 22-31 N ANION GAP (test code = GAP) 9.50 10-20 L GLUCOSE (test code = GLU) 83 mg/dL 65-110 N BLOOD UREA NITROGEN (test code = 7 mg/dL 7-18 N BUN) GLOMERULAR FILTRATION RATE (test 130 ml/min >60 N code = GFR) CREATININE (test code = CREAT) 0.6 mg/dL 0.5-1.0 N TOTAL PROTEIN (test code = PROT) 4.6 gm/dL 6.3-8.2 L ALBUMIN (test code = ALB) 1.5 gm/dL 3.4-4.8 L CALCIUM (test code = CA) 7.7 mg/dL 8.4-10.2 L BILIRUBIN TOTAL (test code = BILT) <0.1 mg/dL 0.2-1.0 L SGOT/AST (test code = AST) 23 units/L 15-37 N SGPT/ALT (test code = ALT) 18 units/L 12-78 N ALKALINE PHOSPHATASE TOTAL (test 96 units/L 46-116 N code = ALKP) CBC W/AUTO [id number] 06:32:00 Test Item Value Reference Range Interpretation Comments WHITE BLOOD CELL (test code = WBC) 13.3 K/mm3 6.6-12.1 H RED BLOOD CELL (test code = RBC) 3.65 M/mm3 3.45-5.01 N HEMOGLOBIN (test code = HGB) 10.5 g/dL 10.7-13.9 L HEMATOCRIT (test code = HCT) 33.3 % 32.1-42.1 N MEAN CELL VOLUME (test code = MCV) 91 fL 84.1-94.8 N MEAN CELL HGB (test code = MCH) 28.8 pg 27-35 N MEAN CELL HGB CONCETRATION (test 31.5 gm/dL 32.2-34.1 L code = MCHC) RED CELL DISTRIBUTION WIDTH (test 13.0 % 12.4-16.5 N code = RDW) PLATELET COUNT (test code = PLT) 218 K/mm3 133-385 N IMMATURE PLATELET FRACTION (test 0.0 % 0.0-10.8 N code = IPF) MEAN PLATELET VOLUME (test code = 11.8 fl 9.1-12.7 N MPV) NEUTROPHIL % (test code = NT%) 56.6 % 56.5-79.4 N LYMPHOCYTE % (test code = LY%) 34.2 % 14.3-34.3 N MONOCYTE % (test code = MO%) 7.8 % 5.1-10.4 N EOSINOPHIL % (test code = EO%) 0.8 % 0.1-3.0 N BASOPHIL % (test code = BA%) 0.2 % 0.1-1.0 N NEUTROPHIL # (test code = NT#) 7.5 K/mm3 LYMPHOCYTE # (test code = LY#) 4.6 K/mm3 MONOCYTE # (test code = MO#) 1.0 K/mm3 EOSINOPHIL # (test code = EO#) 0.11 K/mm3 BASOPHIL # (test code = BA#) 0.0 K/mm3 RBC MORPHOLOGY REQUIRED (test code NORMAL NORMAL = RBCM) PLATELET MORPHOLOGY REQUIRED (test NORMAL NORMAL code = PLTMR) COMPREHENSIVE METABOLIC [id number] 06:18:00 Test Item Value Reference Range Interpretation Comments SODIUM (test code = NA) 139 mEq/L 135-145 N POTASSIUM (test code = K) 4.5 mEq/L 3.5-5.0 N CHLORIDE (test code = CL) 106 mEq/L 100-115 N CARBON DIOXIDE (test code = CO2) 28 mEq/L 22-31 N ANION GAP (test code = GAP) 9.90 10-20 L GLUCOSE (test code = GLU) 103 mg/dL 65-110 N BLOOD UREA NITROGEN (test code = 10 mg/dL 7-18 N BUN) GLOMERULAR FILTRATION RATE (test 109 ml/min >60 N code = GFR) CREATININE (test code = CREAT) 0.7 mg/dL 0.5-1.0 N TOTAL PROTEIN (test code = PROT) 5.0 gm/dL 6.3-8.2 L ALBUMIN (test code = ALB) 1.6 gm/dL 3.4-4.8 L CALCIUM (test code = CA) 7.2 mg/dL 8.4-10.2 L BILIRUBIN TOTAL (test code = <0.1 mg/dL 0.2-1.0 L BILT) SGOT/AST (test code = AST) 30 units/L 15-37 N SGPT/ALT (test code = ALT) 20 units/L 12-78 N ALKALINE PHOSPHATASE TOTAL (test 115 units/L 46-116 N code = ALKP) CBC W/AUTO [id number] 06:02:00 Test Item Value Reference Range Interpretation Comments WHITE BLOOD CELL (test code = WBC) 18.6 K/mm3 6.6-12.1 H RED BLOOD CELL (test code = RBC) 3.99 M/mm3 3.45-5.01 N HEMOGLOBIN (test code = HGB) 11.6 g/dL 10.7-13.9 N HEMATOCRIT (test code = HCT) 35.9 % 32.1-42.1 N MEAN CELL VOLUME (test code = MCV) 90 fL 84.1-94.8 N MEAN CELL HGB (test code = MCH) 29.1 pg 27-35 N MEAN CELL HGB CONCETRATION (test 32.3 gm/dL 32.2-34.1 N code = MCHC) RED CELL DISTRIBUTION WIDTH (test 13.0 % 12.4-16.5 N code = RDW) PLATELET COUNT (test code = PLT) 231 K/mm3 133-385 N IMMATURE PLATELET FRACTION (test 0.0 % 0.0-10.8 N code = IPF) MEAN PLATELET VOLUME (test code = 12.0 fl 9.1-12.7 N MPV) NEUTROPHIL % (test code = NT%) 67.0 % 56.5-79.4 N LYMPHOCYTE % (test code = LY%) 24.4 % 14.3-34.3 N MONOCYTE % (test code = MO%) 7.4 % 5.1-10.4 N EOSINOPHIL % (test code = EO%) 0.2 % 0.1-3.0 N BASOPHIL % (test code = BA%) 0.2 % 0.1-1.0 N NEUTROPHIL # (test code = NT#) 12.5 K/mm3 LYMPHOCYTE # (test code = LY#) 4.5 K/mm3 MONOCYTE # (test code = MO#) 1.4 K/mm3 EOSINOPHIL # (test code = EO#) 0.03 K/mm3 BASOPHIL # (test code = BA#) 0.0 K/mm3 RBC MORPHOLOGY REQUIRED (test code NORMAL NORMAL = RBCM) PLATELET MORPHOLOGY REQUIRED (test NORMAL NORMAL code = PLTMR) COMPREHENSIVE METABOLIC [id number] 04:53:00 Test Item Value Reference Range Interpretation Comments SODIUM (test code = NA) 135 mEq/L 135-145 N POTASSIUM (test code = K) 4.6 mEq/L 3.5-5.0 N CHLORIDE (test code = CL) 103 mEq/L 100-115 N CARBON DIOXIDE (test code = CO2) 22 mEq/L 22-31 N ANION GAP (test code = GAP) 14.70 10-20 N GLUCOSE (test code = GLU) 128 mg/dL 65-110 H BLOOD UREA NITROGEN (test code = 9 mg/dL 7-18 N BUN) GLOMERULAR FILTRATION RATE (test 82 ml/min >60 N code = GFR) CREATININE (test code = CREAT) 0.9 mg/dL 0.5-1.0 N TOTAL PROTEIN (test code = PROT) 5.2 gm/dL 6.3-8.2 L ALBUMIN (test code = ALB) 1.7 gm/dL 3.4-4.8 L CALCIUM (test code = CA) 6.9 mg/dL 8.4-10.2 L BILIRUBIN TOTAL (test code = 0.1 mg/dL 0.2-1.0 L BILT) SGOT/AST (test code = AST) 34 units/L 15-37 N SGPT/ALT (test code = ALT) 24 units/L 12-78 N ALKALINE PHOSPHATASE TOTAL (test 137 units/L 46-116 H code = ALKP) [id number] 04:53:00 Test Item Value Reference Range Interpretation Comments MAGNESIUM (test code = 7.5 mg/dL 1.8-2.4 HH RESUL TS CALLED TO MAG) Mesfin BalderasREAD BACK & CONFIRMED? Y.BY F.LAB.HB 0451.Results ve rified by repeat michel sis CBC W/AUTO [id number] 04:31:00 Test Item Value Reference Range Interpretation Comments WHITE BLOOD CELL (test 27.8 K/mm3 6.6-12.1 HH RESUL TS CALLED TO code = WBC) MESFIN BalderasREAD BACK & CONFIRMED? Y. BY F.LAB.LGL0 03/07 9845.RESULTS VERIFIED BY REP EAT ANALYSIS RED BLOOD CELL (test 4.44 M/mm3 3.45-5.01 N code = RBC) HEMOGLOBIN (test code = 12.9 g/dL 10.7-13.9 N HGB) HEMATOCRIT (test code = 38.9 % 32.1-42.1 N HCT) MEAN CELL VOLUME (test 88 fL 84.1-94.8 N code = MCV) MEAN CELL HGB (test code 29.1 pg 27-35 N = MCH) MEAN CELL HGB 33.2 gm/dL 32.2-34.1 N CONCETRATION (test code = MCHC) RED CELL DISTRIBUTION 12.3 % 12.4-16.5 L WIDTH (test code = RDW) PLATELET COUNT (test 253 K/mm3 133-385 N code = PLT) MEAN PLATELET VOLUME 11.7 fl 9.1-12.7 N (test code = MPV) NEUTROPHIL % (test code 85.3 % 56.5-79.4 H = NT%) LYMPHOCYTE % (test code 9.7 % 14.3-34.3 L = LY%) MONOCYTE % (test code = 4.0 % 5.1-10.4 L MO%) EOSINOPHIL % (test code 0.0 % 0.1-3.0 L = EO%) BASOPHIL % (test code = 0.1 % 0.1-1.0 N BA%) NEUTROPHIL # (test code 23.7 K/mm3 = NT#) LYMPHOCYTE # (test code 2.7 K/mm3 = LY#) MONOCYTE # (test code = 1.1 K/mm3 MO#) EOSINOPHIL # (test code 0 K/mm3 = EO#) BASOPHIL # (test code = 0.0 K/mm3 BA#) RBC MORPHOLOGY REQUIRED NORMAL NORMAL (test code = RBCM) PLATELET MORPHOLOGY NORMAL NORMAL REQUIRED (test code = PLTMR) CAPILLARY BLOOD [id number] 14:15:00 Test Item Value Reference Range Interpretation Comments CAPILLARY BLOOD GAS PH (test code 7.200 7.35-7.45 L = PHC) CAPILLARY BLOOD GAS PCO2 (test 59.8 mmHg code = PCO2C) CAPILLARY BLOOD GAS PO2 (test code 13.1 mmHg = PO2C) CBG HCO3 (test code = HCO3C) 22.8 meq/L CBG BASE EXCESS (test code = BEC) -6.1 CAPILLARY BLOOD GAS TYPE (test CBLV code = TYPEC) CAPILLARY BLOOD GAS FIO2 (test 21.0 % code = FIO2C) CAPILLARY BLOOD [id number] 14:14:00 Test Item Value Reference Range Interpretation Comments CAPILLARY BLOOD GAS PH (test code 7.148 7.35-7.45 LL = PHC) CAPILLARY BLOOD GAS PCO2 (test 78.3 mmHg code = PCO2C) CBG HCO3 (test code = HCO3C) 26.5 meq/L CBG BASE EXCESS (test code = BEC) -4.4 CAPILLARY BLOOD GAS TYPE (test CBLA code = TYPEC) CAPILLARY BLOOD GAS FIO2 (test 21.0 % code = FIO2C) [facility] [id number] 13:29:00 Test Item Value Reference Range Interpretation Comments CREATININE (test code = CREAT) 0.7 mg/dL 0.5-1.0 N SGOT/AST (test code = AST) 28 units/L 15-37 N SGPT/ALT (test code = ALT) 22 units/L 12-78 N LACTIC DEHYDROGENASE(LDH) (test 254 units/L 81-234 H code = LDH) : *CBC W/AUTO [id number] 13:25:00 Test Item Value Reference Range Interpretation Comments WHITE BLOOD CELL (test code = WBC) 10.6 K/mm3 6.6-12.1 N RED BLOOD CELL (test code = RBC) 4.38 M/mm3 3.45-5.01 N HEMOGLOBIN (test code = HGB) 12.6 g/dL 10.7-13.9 N HEMATOCRIT (test code = HCT) 38.0 % 32.1-42.1 N MEAN CELL VOLUME (test code = MCV) 87 fL 84.1-94.8 N MEAN CELL HGB (test code = MCH) 28.8 pg 27-35 N MEAN CELL HGB CONCETRATION (test 33.2 gm/dL 32.2-34.1 N code = MCHC) RED CELL DISTRIBUTION WIDTH (test 12.3 % 12.4-16.5 L code = RDW) PLATELET COUNT (test code = PLT) 252 K/mm3 133-385 N IMMATURE PLATELET FRACTION (test 0.0 % 0.0-10.8 N code = IPF) MEAN PLATELET VOLUME (test code = 12.4 fl 9.1-12.7 N MPV) MANUAL DIFF REQUIRED (test code = YES MDIFF) RBC MORPHOLOGY REQUIRED (test code NORMAL NORMAL = RBCM) PLATELET MORPHOLOGY REQUIRED (test NORMAL NORMAL code = PLTMR) WBC [id number] 13:25:00 Test Item Value Reference Range Interpretation Comments TOTAL CELLS COUNTED (test code = 100 #CELLS TCC) SEGMENTED NEUTROPHILS (test code = 58 % 56.5-79.4 N SEG) LYMPHOCYTE (test code = LYMPH) 36 % 20-40 N MONOCYTE (test code = MON) 5 % 0-8 N METAMYELOCYTE (test code = META) 1 % >0 H PLATELET ESTIMATE (test code = ADEQUATE ADEQ PLTEST) PLATELET MORPHOLOGY (test code = NORMAL NORMAL PLTMORPH) CBC W/AUTO [id number] 13:02:00 Test Item Value Reference Range Interpretation Comments WHITE BLOOD CELL (test code = WBC) 10.6 K/mm3 6.6-12.1 N RED BLOOD CELL (test code = RBC) 4.38 M/mm3 3.45-5.01 N HEMOGLOBIN (test code = HGB) 12.6 g/dL 10.7-13.9 N HEMATOCRIT (test code = HCT) 38.0 % 32.1-42.1 N MEAN CELL VOLUME (test code = MCV) 87 fL 84.1-94.8 N MEAN CELL HGB (test code = MCH) 28.8 pg 27-35 N MEAN CELL HGB CONCETRATION (test 33.2 gm/dL 32.2-34.1 N code = MCHC) RED CELL DISTRIBUTION WIDTH (test 12.3 % 12.4-16.5 L code = RDW) PLATELET COUNT (test code = PLT) 252 K/mm3 133-385 N IMMATURE PLATELET FRACTION (test 0.0 % 0.0-10.8 N code = IPF) MEAN PLATELET VOLUME (test code = 12.4 fl 9.1-12.7 N MPV) MANUAL DIFF REQUIRED (test code = YES MDIFF) RBC MORPHOLOGY REQUIRED (test code NORMAL = RBCM) PLATELET MORPHOLOGY REQUIRED (test NORMAL code = PLTMR) WBC [id number] 13:02:00 Test Item Value Reference Range Interpretation Comments SEGMENTED NEUTROPHILS (test code = SEG) % 56.5-79.4 LYMPHOCYTE (test code = LYMPH) % 20-40 CBC W/AUTO [id number] 13:02:00 Test Item Value Reference Range Interpretation Comments WHITE BLOOD CELL (test code = WBC) 10.6 K/mm3 6.6-12.1 N RED BLOOD CELL (test code = RBC) 4.38 M/mm3 3.45-5.01 N HEMOGLOBIN (test code = HGB) 12.6 g/dL 10.7-13.9 N HEMATOCRIT (test code = HCT) 38.0 % 32.1-42.1 N MEAN CELL VOLUME (test code = MCV) 87 fL 84.1-94.8 N MEAN CELL HGB (test code = MCH) 28.8 pg 27-35 N MEAN CELL HGB CONCETRATION (test 33.2 gm/dL 32.2-34.1 N code = MCHC) RED CELL DISTRIBUTION WIDTH (test 12.3 % 12.4-16.5 L code = RDW) PLATELET COUNT (test code = PLT) 252 K/mm3 133-385 N IMMATURE PLATELET FRACTION (test 0.0 % 0.0-10.8 N code = IPF) MEAN PLATELET VOLUME (test code = 12.4 fl 9.1-12.7 N MPV) MANUAL DIFF REQUIRED (test code = YES MDIFF) RBC MORPHOLOGY REQUIRED (test code NORMAL = RBCM) PLATELET MORPHOLOGY REQUIRED (test NORMAL code = PLTMR) WBC [id number] 13:02:00 Test Item Value Reference Range Interpretation Comments SEGMENTED NEUTROPHILS (test code = SEG) % 56.5-79.4 LYMPHOCYTE (test code = LYMPH) % 20-40 COMPREHENSIVE METABOLIC [id number] 05:46:00 Test Item Value Reference Range Interpretation Comments SODIUM (test code = NA) 138 mEq/L 135-145 N POTASSIUM (test code = K) 4.0 mEq/L 3.5-5.0 N CHLORIDE (test code = CL) 106 mEq/L 100-115 N CARBON DIOXIDE (test code = CO2) 25 mEq/L 22-31 N ANION GAP (test code = GAP) 11.00 10-20 N GLUCOSE (test code = GLU) 90 mg/dL 65-110 N BLOOD UREA NITROGEN (test code = 11 mg/dL 7-18 N BUN) GLOMERULAR FILTRATION RATE (test 109 ml/min >60 N code = GFR) CREATININE (test code = CREAT) 0.7 mg/dL 0.5-1.0 N TOTAL PROTEIN (test code = PROT) 4.6 gm/dL 6.3-8.2 L ALBUMIN (test code = ALB) 1.5 gm/dL 3.4-4.8 L CALCIUM (test code = CA) 7.0 mg/dL 8.4-10.2 L BILIRUBIN TOTAL (test code = 0.1 mg/dL 0.2-1.0 L BILT) SGOT/AST (test code = AST) 20 units/L 15-37 N SGPT/ALT (test code = ALT) 22 units/L 12-78 N ALKALINE PHOSPHATASE TOTAL (test 123 units/L 46-116 H code = ALKP) URIC [id number] 05:46:00 Test Item Value Reference Range Interpretation Comments URIC ACID (test code = URIC) 5.5 mg/dL 2.6-6.0 N LACTIC DEHYDROGENASE(LDH)[id number] 05:46:00 Test Item Value Reference Range Interpretation Comments LACTIC DEHYDROGENASE(LDH) (test 188 units/L 81-234 N code = LDH) UR PROTEIN/CREATININE [id number] 20:05:00 Test Item Value Reference Range Interpretation Comments UR PROTEIN RANDOM (test code 1350.4 mg/dL = PROTU) UR CREATININE RANDOM (test 201.8 mg/dL code = CREATU) PROTEIN/CREATININE RATIO 6690.0 mg/gcrea <200 H (test code = P/CRATIO) COMPREHENSIVE METABOLIC [id number] 07:22:00 Test Item Value Reference Range Interpretation Comments SODIUM (test code = NA) 138 mEq/L 135-145 N POTASSIUM (test code = K) 4.0 mEq/L 3.5-5.0 N CHLORIDE (test code = CL) 106 mEq/L 100-115 N CARBON DIOXIDE (test code = CO2) 25 mEq/L 22-31 N ANION GAP (test code = GAP) 11.00 10-20 N GLUCOSE (test code = GLU) 90 mg/dL 65-110 N BLOOD UREA NITROGEN (test code = 11 mg/dL 7-18 N BUN) GLOMERULAR FILTRATION RATE (test 109 ml/min >60 N code = GFR) CREATININE (test code = CREAT) 0.7 mg/dL 0.5-1.0 N TOTAL PROTEIN (test code = PROT) 4.6 gm/dL 6.3-8.2 L ALBUMIN (test code = ALB) 1.5 gm/dL 3.4-4.8 L CALCIUM (test code = CA) 7.0 mg/dL 8.4-10.2 L BILIRUBIN TOTAL (test code = 0.1 mg/dL 0.2-1.0 L BILT) SGOT/AST (test code = AST) 20 units/L 15-37 N SGPT/ALT (test code = ALT) 22 units/L 12-78 N ALKALINE PHOSPHATASE TOTAL (test 123 units/L 46-116 H code = ALKP) URIC [id number] 07:22:00 Test Item Value Reference Range Interpretation Comments URIC ACID (test code = URIC) 5.5 mg/dL 2.6-6.0 N CBC W/AUTO [id number] 07:08:00 Test Item Value Reference Range Interpretation Comments WHITE BLOOD CELL (test code = WBC) 10.3 K/mm3 6.6-12.1 N RED BLOOD CELL (test code = RBC) 4.22 M/mm3 3.45-5.01 N HEMOGLOBIN (test code = HGB) 12.1 g/dL 10.7-13.9 N HEMATOCRIT (test code = HCT) 36.1 % 32.1-42.1 N MEAN CELL VOLUME (test code = MCV) 86 fL 84.1-94.8 N MEAN CELL HGB (test code = MCH) 28.7 pg 27-35 N MEAN CELL HGB CONCETRATION (test 33.5 gm/dL 32.2-34.1 N code = MCHC) RED CELL DISTRIBUTION WIDTH (test 12.7 % 12.4-16.5 N code = RDW) PLATELET COUNT (test code = PLT) 254 K/mm3 133-385 N IMMATURE PLATELET FRACTION (test 0.0 % 0.0-10.8 N code = IPF) MEAN PLATELET VOLUME (test code = 11.4 fl 9.1-12.7 N MPV) NEUTROPHIL % (test code = NT%) 52.8 % 56.5-79.4 L LYMPHOCYTE % (test code = LY%) 38.2 % 14.3-34.3 H MONOCYTE % (test code = MO%) 7.6 % 5.1-10.4 N EOSINOPHIL % (test code = EO%) 0.9 % 0.1-3.0 N BASOPHIL % (test code = BA%) 0.2 % 0.1-1.0 N NEUTROPHIL # (test code = NT#) 5.4 K/mm3 LYMPHOCYTE # (test code = LY#) 3.9 K/mm3 MONOCYTE # (test code = MO#) 0.8 K/mm3 EOSINOPHIL # (test code = EO#) 0.09 K/mm3 BASOPHIL # (test code = BA#) 0.0 K/mm3 RBC MORPHOLOGY REQUIRED (test code NORMAL NORMAL = RBCM) PLATELET MORPHOLOGY REQUIRED (test NORMAL NORMAL code = PLTMR) [facility] [id number] 16:20:00 Test Item Value Reference Range Interpretation Comments CREATININE (test code = CREAT) 0.7 mg/dL 0.5-1.0 N SGOT/AST (test code = AST) 32 units/L 15-37 N SGPT/ALT (test code = ALT) 34 units/L 12-78 N LACTIC DEHYDROGENASE(LDH) (test 206 units/L 81-234 N code = LDH) CBC W/AUTO [id number] 15:39:00 Test Item Value Reference Range Interpretation Comments WHITE BLOOD CELL (test code = WBC) 10.0 K/mm3 6.6-12.1 N RED BLOOD CELL (test code = RBC) 4.38 M/mm3 3.45-5.01 N HEMOGLOBIN (test code = HGB) 12.7 g/dL 10.7-13.9 N HEMATOCRIT (test code = HCT) 37.6 % 32.1-42.1 N MEAN CELL VOLUME (test code = MCV) 86 fL 84.1-94.8 N MEAN CELL HGB (test code = MCH) 29.0 pg 27-35 N MEAN CELL HGB CONCETRATION (test 33.8 gm/dL 32.2-34.1 N code = MCHC) RED CELL DISTRIBUTION WIDTH (test 12.7 % 12.4-16.5 N code = RDW) PLATELET COUNT (test code = PLT) 244 K/mm3 133-385 N IMMATURE PLATELET FRACTION (test 0.0 % 0.0-10.8 N code = IPF) MEAN PLATELET VOLUME (test code = 11.9 fl 9.1-12.7 N MPV) NEUTROPHIL % (test code = NT%) 60.0 % 56.5-79.4 N LYMPHOCYTE % (test code = LY%) 31.1 % 14.3-34.3 N MONOCYTE % (test code = MO%) 8.1 % 5.1-10.4 N EOSINOPHIL % (test code = EO%) 0.3 % 0.1-3.0 N BASOPHIL % (test code = BA%) 0.2 % 0.1-1.0 N NEUTROPHIL # (test code = NT#) 6.0 K/mm3 LYMPHOCYTE # (test code = LY#) 3.1 K/mm3 MONOCYTE # (test code = MO#) 0.8 K/mm3 EOSINOPHIL # (test code = EO#) 0.03 K/mm3 BASOPHIL # (test code = BA#) 0.0 K/mm3 RBC MORPHOLOGY REQUIRED (test code NORMAL NORMAL = RBCM) PLATELET MORPHOLOGY REQUIRED (test NORMAL NORMAL code = PLTMR) COMPREHENSIVE METABOLIC [id number] 10:26:00 Test Item Value Reference Range Interpretation Comments SODIUM (test code = NA) 136 mEq/L 135-145 N POTASSIUM (test code = K) 4.4 mEq/L 3.5-5.0 N CHLORIDE (test code = CL) 105 mEq/L 100-115 N CARBON DIOXIDE (test code = CO2) 22 mEq/L 22-31 N ANION GAP (test code = GAP) 13.20 10-20 N GLUCOSE (test code = GLU) 106 mg/dL 65-110 N BLOOD UREA NITROGEN (test code = 11 mg/dL 7-18 N BUN) GLOMERULAR FILTRATION RATE (test 93 ml/min >60 N code = GFR) CREATININE (test code = CREAT) 0.8 mg/dL 0.5-1.0 N TOTAL PROTEIN (test code = PROT) 6.0 gm/dL 6.3-8.2 L ALBUMIN (test code = ALB) 2.2 gm/dL 3.4-4.8 L CALCIUM (test code = CA) 8.0 mg/dL 8.4-10.2 L BILIRUBIN TOTAL (test code = 0.1 mg/dL 0.2-1.0 L BILT) SGOT/AST (test code = AST) 37 units/L 15-37 N SGPT/ALT (test code = ALT) 41 units/L 12-78 N ALKALINE PHOSPHATASE TOTAL (test 129 units/L 46-116 H code = ALKP) CBC W/AUTO [id number] 09:46:00 Test Item Value Reference Range Interpretation Comments WHITE BLOOD CELL (test code = WBC) 12.1 K/mm3 6.6-12.1 N RED BLOOD CELL (test code = RBC) 5.00 M/mm3 3.45-5.01 N HEMOGLOBIN (test code = HGB) 14.5 g/dL 10.7-13.9 H HEMATOCRIT (test code = HCT) 43.7 % 32.1-42.1 H MEAN CELL VOLUME (test code = MCV) 87 fL 84.1-94.8 N MEAN CELL HGB (test code = MCH) 29.0 pg 27-35 N MEAN CELL HGB CONCETRATION (test 33.2 gm/dL 32.2-34.1 N code = MCHC) RED CELL DISTRIBUTION WIDTH (test 12.9 % 12.4-16.5 N code = RDW) PLATELET COUNT (test code = PLT) 255 K/mm3 133-385 N IMMATURE PLATELET FRACTION (test 0.0 % 0.0-10.8 N code = IPF) MEAN PLATELET VOLUME (test code = 12.1 fl 9.1-12.7 N MPV) NEUTROPHIL % (test code = NT%) 54.0 % 56.5-79.4 L LYMPHOCYTE % (test code = LY%) 37.9 % 14.3-34.3 H MONOCYTE % (test code = MO%) 7.2 % 5.1-10.4 N EOSINOPHIL % (test code = EO%) 0.5 % 0.1-3.0 N BASOPHIL % (test code = BA%) 0.2 % 0.1-1.0 N NEUTROPHIL # (test code = NT#) 6.5 K/mm3 LYMPHOCYTE # (test code = LY#) 4.6 K/mm3 MONOCYTE # (test code = MO#) 0.9 K/mm3 EOSINOPHIL # (test code = EO#) 0.06 K/mm3 BASOPHIL # (test code = BA#) 0.0 K/mm3 RBC MORPHOLOGY REQUIRED (test code NORMAL NORMAL = RBCM) PLATELET MORPHOLOGY REQUIRED (test NORMAL NORMAL code = PLTMR) UR CREATININE CLEARANCE [id number] 15:22:00 Test Item Value Reference Range Interpretation Comments CREATININE CLEARANCE RESULT (test 137 ml/min 70-120 H code = CREATCLR) CREATININE (test code = CREAT) 0.6 mg/dL 0.5-1.0 N UR CREATININE RANDOM (test code = 55.2 mg/dL CREATU) UR VOLUME (test code = VOL) 2150 ML UR PROTEIN [id number] 15:22:00 Test Item Value Reference Range Interpretation Comments UR PROTEIN RANDOM 494 mg/dL (test code = PROTU) UR PROTEIN 24HR [id number] mg/24HR 20-150 HH RESULTS ASIA LED TO AYAN (test code = . RN.READ BACK & [id number]) CONFIRMED? Y.BY F.LAB.LDT 06/14 6842. RESULTS V ERIFIED BY REPEAT MICHEL SISUnits for 24 HR Urine Protein have changed: New Units = MG/24HR COMPREHENSIVE METABOLIC [id number] 16:39:00 Test Item Value Reference Range Interpretation Comments SODIUM (test code = NA) 135 mEq/L 135-145 N POTASSIUM (test code = K) 4.7 mEq/L 3.5-5.0 N CHLORIDE (test code = CL) 103 mEq/L 100-115 N CARBON DIOXIDE (test code = CO2) 22 mEq/L 22-31 N ANION GAP (test code = GAP) 14.90 10-20 N GLUCOSE (test code = GLU) 95 mg/dL 65-110 N BLOOD UREA NITROGEN (test code = 14 mg/dL 7-18 N BUN) GLOMERULAR FILTRATION RATE (test 130 ml/min >60 N code = GFR) CREATININE (test code = CREAT) 0.6 mg/dL 0.5-1.0 N TOTAL PROTEIN (test code = PROT) 6.0 gm/dL 6.3-8.2 L ALBUMIN (test code = ALB) 2.3 gm/dL 3.4-4.8 L CALCIUM (test code = CA) 8.2 mg/dL 8.4-10.2 L BILIRUBIN TOTAL (test code = 0.1 mg/dL 0.2-1.0 L BILT) SGOT/AST (test code = AST) 26 units/L 15-37 N SGPT/ALT (test code = ALT) 33 units/L 12-78 N ALKALINE PHOSPHATASE TOTAL (test 123 units/L 46-116 H code = ALKP) CBC W/AUTO [id number] 16:38:00 Test Item Value Reference Range Interpretation Comments WHITE BLOOD CELL (test 12.7 K/mm3 6.6-12.1 H Resul ts verified by code = WBC) repeat analysis RED BLOOD CELL (test 4.95 M/mm3 3.45-5.01 N code = RBC) HEMOGLOBIN (test code = 14.5 g/dL 10.7-13.9 H HGB) HEMATOCRIT (test code = 43.0 % 32.1-42.1 H HCT) MEAN CELL VOLUME (test 87 fL 84.1-94.8 N code = MCV) MEAN CELL HGB (test code 29.3 pg 27-35 N = MCH) MEAN CELL HGB 33.7 gm/dL 32.2-34.1 N CONCETRATION (test code = MCHC) RED CELL DISTRIBUTION 13.2 % 12.4-16.5 N WIDTH (test code = RDW) PLATELET COUNT (test 230 K/mm3 133-385 Results verified by code = PLT) repeat analysis IMMATURE PLATELET 0.0 % 0.0-10.8 N FRACTION (test code = IPF) MEAN PLATELET VOLUME 12.5 fl 9.1-12.7 N (test code = MPV) NEUTROPHIL % (test code 58.1 % 56.5-79.4 N = NT%) LYMPHOCYTE % (test code 30.4 % 14.3-34.3 N = LY%) MONOCYTE % (test code = 10.0 % 5.1-10.4 N MO%) EOSINOPHIL % (test code 0.9 % 0.1-3.0 N = EO%) BASOPHIL % (test code = 0.2 % 0.1-1.0 N BA%) NEUTROPHIL # (test code 7.4 K/mm3 = NT#) LYMPHOCYTE # (test code 3.9 K/mm3 = LY#) MONOCYTE # (test code = 1.3 K/mm3 MO#) EOSINOPHIL # (test code 0.12 K/mm3 = EO#) BASOPHIL # (test code = 0.0 K/mm3 BA#) RBC MORPHOLOGY REQUIRED NORMAL NORMAL (test code = RBCM) PLATELET MORPHOLOGY NORMAL NORMAL REQUIRED (test code = PLTMR) CBC W/AUTO [id number] 16:37:00 Test Item Value Reference Range Interpretation Comments WHITE BLOOD CELL (test 12.7 K/mm3 6.6-12.1 H Resul ts verified by code = WBC) repeat analysis RED BLOOD CELL (test 4.95 M/mm3 3.45-5.01 N code = RBC) HEMOGLOBIN (test code = 14.5 g/dL 10.7-13.9 H HGB) HEMATOCRIT (test code = 43.0 % 32.1-42.1 H HCT) MEAN CELL VOLUME (test 87 fL 84.1-94.8 N code = MCV) MEAN CELL HGB (test code 29.3 pg 27-35 N = MCH) MEAN CELL HGB 33.7 gm/dL 32.2-34.1 N CONCETRATION (test code = MCHC) RED CELL DISTRIBUTION 13.2 % 12.4-16.5 N WIDTH (test code = RDW) PLATELET COUNT (test 230 K/mm3 133-385 Results verified by code = PLT) repeat analysis IMMATURE PLATELET 0.0 % 0.0-10.8 N FRACTION (test code = IPF) MEAN PLATELET VOLUME 12.5 fl 9.1-12.7 N (test code = MPV) NEUTROPHIL % (test code 58.1 % 56.5-79.4 N = NT%) LYMPHOCYTE % (test code 30.4 % 14.3-34.3 N = LY%) MONOCYTE % (test code = 10.0 % 5.1-10.4 N MO%) EOSINOPHIL % (test code 0.9 % 0.1-3.0 N = EO%) BASOPHIL % (test code = 0.2 % 0.1-1.0 N BA%) NEUTROPHIL # (test code 7.4 K/mm3 = NT#) LYMPHOCYTE # (test code 3.9 K/mm3 = LY#) MONOCYTE # (test code = 1.3 K/mm3 MO#) EOSINOPHIL # (test code 0.12 K/mm3 = EO#) BASOPHIL # (test code = 0.0 K/mm3 BA#) RBC MORPHOLOGY REQUIRED NORMAL (test code = RBCM) PLATELET MORPHOLOGY NORMAL REQUIRED (test code = PLTMR) UR PROTEIN/CREATININE [id number] 11:57:00 Test Item Value Reference Range Interpretation Comments UR PROTEIN RANDOM (test code 739.2 mg/dL = PROTU) UR CREATININE RANDOM (test 69.3 mg/dL code = CREATU) PROTEIN/CREATININE RATIO 24256.0 mg/gcrea <200 H (test code = P/CRATIO) CBC W/AUTO [id number] 12:11:00 Test Item Value Reference Range Interpretation Comments WHITE BLOOD CELL (test code = WBC) 9.2 K/mm3 6.6-12.1 N RED BLOOD CELL (test code = RBC) 4.16 M/mm3 3.45-5.01 N HEMOGLOBIN (test code = HGB) 12.1 g/dL 10.7-13.9 N HEMATOCRIT (test code = HCT) 37.1 % 32.1-42.1 N MEAN CELL VOLUME (test code = MCV) 89 fL 84.1-94.8 N MEAN CELL HGB (test code = MCH) 29.1 pg 27-35 N MEAN CELL HGB CONCETRATION (test 32.6 gm/dL 32.2-34.1 N code = MCHC) RED CELL DISTRIBUTION WIDTH (test 13.2 % 12.4-16.5 N code = RDW) PLATELET COUNT (test code = PLT) 163 K/mm3 133-385 N IMMATURE PLATELET FRACTION (test 0.0 % 0.0-10.8 N code = IPF) MEAN PLATELET VOLUME (test code = 12.7 fl 9.1-12.7 N MPV) NEUTROPHIL % (test code = NT%) 50.6 % 56.5-79.4 L LYMPHOCYTE % (test code = LY%) 36.9 % 14.3-34.3 H MONOCYTE % (test code = MO%) 11.0 % 5.1-10.4 H EOSINOPHIL % (test code = EO%) 1.0 % 0.1-3.0 N BASOPHIL % (test code = BA%) 0.3 % 0.1-1.0 N NEUTROPHIL # (test code = NT#) 4.6 K/mm3 LYMPHOCYTE # (test code = LY#) 3.4 K/mm3 MONOCYTE # (test code = MO#) 1.0 K/mm3 EOSINOPHIL # (test code = EO#) 0.09 K/mm3 BASOPHIL # (test code = BA#) 0.0 K/mm3 RBC MORPHOLOGY REQUIRED (test code NORMAL NORMAL = RBCM) PLATELET MORPHOLOGY REQUIRED (test NORMAL NORMAL code = PLTMR) COMPREHENSIVE METABOLIC [id number] 11:30:00 Test Item Value Reference Range Interpretation Comments SODIUM (test code = NA) 138 mEq/L 135-145 N POTASSIUM (test code = K) 4.6 mEq/L 3.5-5.0 N CHLORIDE (test code = CL) 105 mEq/L 100-115 N CARBON DIOXIDE (test code = CO2) 25 mEq/L 22-31 N ANION GAP (test code = GAP) 12.50 10-20 N GLUCOSE (test code = GLU) 65 mg/dL 65-110 N BLOOD UREA NITROGEN (test code = 11 mg/dL 7-18 N BUN) GLOMERULAR FILTRATION RATE (test 130 ml/min >60 N code = GFR) CREATININE (test code = CREAT) 0.6 mg/dL 0.5-1.0 N TOTAL PROTEIN (test code = PROT) 5.6 gm/dL 6.3-8.2 L ALBUMIN (test code = ALB) 2.2 gm/dL 3.4-4.8 L CALCIUM (test code = CA) 7.8 mg/dL 8.4-10.2 L BILIRUBIN TOTAL (test code = 0.1 mg/dL 0.2-1.0 L BILT) SGOT/AST (test code = AST) 25 units/L 15-37 N SGPT/ALT (test code = ALT) 35 units/L 12-78 N ALKALINE PHOSPHATASE TOTAL (test 101 units/L 46-116 N code = ALKP) URIC [id number] 11:30:00 Test Item Value Reference Range Interpretation Comments URIC ACID (test code = URIC) 4.8 mg/dL 2.6-6.0 N LACTIC DEHYDROGENASE(LDH)[id number] 11:30:00 Test Item Value Reference Range Interpretation Comments LACTIC DEHYDROGENASE(LDH) (test 186 units/L 81-234 N code = LDH) PIH [id number] 08:34:00 Test Item Value Reference Range Interpretation Comments CREATININE (test code = CREAT) 0.5 mg/dL 0.5-1.0 N SGOT/AST (test code = AST) 26 units/L 15-37 N SGPT/ALT (test code = ALT) 35 units/L 12-78 LACTIC DEHYDROGENASE(LDH) (test 195 units/L 81-234 code = LDH) : *THYROID STIMULATING [id number] 08:34:00 Test Item Value Reference Range Interpretation Comments THYROID STIMULATING 6.71 0.36-3.74 H Test Per formed in HORMONE (test code = MicroIn ternational Units/mL TSH) : *UR PROTEIN/CREATININE [id number] 16:14:00 Test Item Value Reference Range Interpretation Comments UR PROTEIN RANDOM (test code 529.3 mg/dL = PROTU) UR CREATININE RANDOM (test 118.2 mg/dL code = CREATU) PROTEIN/CREATININE RATIO 4470.0 mg/gcrea <200 H (test code = P/CRATIO) COMPREHENSIVE METABOLIC [id number] 15:39:00 Test Item Value Reference Range Interpretation Comments SODIUM (test code = NA) 138 mEq/L 135-145 N POTASSIUM (test code = K) 4.5 mEq/L 3.5-5.0 N CHLORIDE (test code = CL) 105 mEq/L 100-115 N CARBON DIOXIDE (test code = CO2) 24 mEq/L 22-31 N ANION GAP (test code = GAP) 13.10 10-20 N GLUCOSE (test code = GLU) 84 mg/dL 65-110 N BLOOD UREA NITROGEN (test code = 11 mg/dL 7-18 N BUN) GLOMERULAR FILTRATION RATE (test 130 ml/min >60 N code = GFR) CREATININE (test code = CREAT) 0.6 mg/dL 0.5-1.0 N TOTAL PROTEIN (test code = PROT) 6.1 gm/dL 6.3-8.2 L ALBUMIN (test code = ALB) 2.7 gm/dL 3.4-4.8 L CALCIUM (test code = CA) 8.4 mg/dL 8.4-10.2 N BILIRUBIN TOTAL (test code = 0.1 mg/dL 0.2-1.0 L BILT) SGOT/AST (test code = AST) 19 units/L 15-37 N SGPT/ALT (test code = ALT) 18 units/L 12-78 N ALKALINE PHOSPHATASE TOTAL (test 102 units/L 46-116 N code = ALKP) URIC [id number] 15:39:00 Test Item Value Reference Range Interpretation Comments URIC ACID (test code = URIC) 3.7 mg/dL 2.6-6.0 N PROTHROMBIN [id number] 15:37:00 Test Item Value Reference Range Interpretation Comments PROTHROMBIN TIME PATIENT (test code 10.0 secs 10.4-12.4 L = PTP) THROMBOPLASTIN TIME [id number] 15:37:00 Test Item Value Reference Range Interpretation Comments THROMBOPLASTIN TIME PARTIAL (test 25.1 secs 22-38 N code = PTT) CBC W/AUTO [id number] 15:12:00 Test Item Value Reference Range Interpretation Comments WHITE BLOOD CELL (test code = WBC) 11.2 K/mm3 6.6-12.1 N RED BLOOD CELL (test code = RBC) 4.36 M/mm3 3.45-5.01 N HEMOGLOBIN (test code = HGB) 12.5 g/dL 10.7-13.9 N HEMATOCRIT (test code = HCT) 38.3 % 32.1-42.1 N MEAN CELL VOLUME (test code = MCV) 88 fL 84.1-94.8 N MEAN CELL HGB (test code = MCH) 28.7 pg 27-35 N MEAN CELL HGB CONCETRATION (test 32.6 gm/dL 32.2-34.1 N code = MCHC) RED CELL DISTRIBUTION WIDTH (test 13.2 % 12.4-16.5 N code = RDW) PLATELET COUNT (test code = PLT) 177 K/mm3 133-385 N IMMATURE PLATELET FRACTION (test 0.0 % 0.0-10.8 N code = IPF) MEAN PLATELET VOLUME (test code = 12.5 fl 9.1-12.7 N MPV) NEUTROPHIL % (test code = NT%) 66.9 % 56.5-79.4 N LYMPHOCYTE % (test code = LY%) 23.8 % 14.3-34.3 N MONOCYTE % (test code = MO%) 8.6 % 5.1-10.4 N EOSINOPHIL % (test code = EO%) 0.2 % 0.1-3.0 N BASOPHIL % (test code = BA%) 0.0 % 0.1-1.0 L NEUTROPHIL # (test code = NT#) 7.5 K/mm3 LYMPHOCYTE # (test code = LY#) 2.7 K/mm3 MONOCYTE # (test code = MO#) 1.0 K/mm3 EOSINOPHIL # (test code = EO#) 0.02 K/mm3 BASOPHIL # (test code = BA#) 0.0 K/mm3 RBC MORPHOLOGY REQUIRED (test code NORMAL NORMAL = RBCM) PLATELET MORPHOLOGY REQUIRED (test NORMAL NORMAL code = PLTMR) AB HIV 1 07:12:00 Test Item Value Reference Range Interpretation Comments AB HIV 1 2 (test NONREACTIVE NONREACTIVE Done by Odalis vaughn [facility] code = [id number]) 4th Gen HIV Ag/Ab Combo Screen IS CONSENT FORM SIGNED FOR HIV TESTING? [facility] [id number] 06:20:00 Test Item Value Reference Range Interpretation Comments CREATININE (test code = CREAT) 0.7 mg/dL 0.5-1.0 N SGOT/AST (test code = AST) 14 units/L 15-37 L SGPT/ALT (test code = ALT) 12 units/L 12-78 N LACTIC DEHYDROGENASE(LDH) (test 161 units/L 81-234 N code = LDH) : *UR PROTEIN [id number] 21:17:00 Test Item Value Reference Range Interpretation Comments UR PROTEIN RANDOM 101.6 mg/dL (test code = PROTU) UR PROTEIN 24HR 2235 mg/24HR 20-150 HH RESULTS CALL ED TO (test code = LAKIA FranklinREAD BACK & [id number]) CONFIRMED? Y.BY F.LAB.HB 5.Units for 24 HR Urine Protein h ave changed: New U nits = MG/24HR UR VOLUME (test code 2200 ML = VOL) AG HEPATITIS B [id number] 01:25:00 Test Item Value Reference Range Interpretation Comments AG HEPATITIS B SURFACE (test code NONREACTIVE NONREACTIVE = HBSAG) AB HEPATITIS C [id number] 01:25:00 Test Item Value Reference Range Interpretation Comments AB HEPATITIS C (test code = NONREACTIVE NONREACTIVE HCVAB) SIGNAL TO CUTOFF (test code = 0.11 <0.80 N CUTOFF) AB [id number] 01:25:00 Test Item Value Reference Range Interpretation Comments AB TREPONEMA (test code = TREPAB) NONREACTIVE NONREACTIVE COMPREHENSIVE METABOLIC [id number] 17:47:00 Test Item Value Reference Range Interpretation Comments SODIUM (test code = NA) 139 mEq/L 135-145 N POTASSIUM (test code = K) 4.4 mEq/L 3.5-5.0 N CHLORIDE (test code = CL) 106 mEq/L 100-115 N CARBON DIOXIDE (test code = CO2) 25 mEq/L 22-31 N ANION GAP (test code = GAP) 12.20 10-20 N GLUCOSE (test code = GLU) 86 mg/dL 65-110 N BLOOD UREA NITROGEN (test code = 8 mg/dL 7-18 N BUN) GLOMERULAR FILTRATION RATE (test 109 ml/min >60 N code = GFR) CREATININE (test code = CREAT) 0.7 mg/dL 0.5-1.0 N TOTAL PROTEIN (test code = PROT) 6.3 gm/dL 6.3-8.2 N ALBUMIN (test code = ALB) 2.8 gm/dL 3.4-4.8 L CALCIUM (test code = CA) 8.1 mg/dL 8.4-10.2 L BILIRUBIN TOTAL (test code = BILT) 0.2 mg/dL 0.2-1.0 N SGOT/AST (test code = AST) 15 units/L 15-37 N SGPT/ALT (test code = ALT) 13 units/L 12-78 N ALKALINE PHOSPHATASE TOTAL (test 92 units/L 46-116 N code = ALKP) URIC [id number] 17:47:00 Test Item Value Reference Range Interpretation Comments URIC ACID (test code = URIC) 5.6 mg/dL 2.6-6.0 N URINALYSIS [id number] 17:30:00 Test Item Value Reference Range Interpretation Comments UA COLOR (test code = COLU) YELLOW YELLOW UA APPEARANCE (test code = Slightly-Cloudy CLEAR APPU) UA GLUCOSE DIPSTICK (test NEGATIVE NEG code = DGLUU) UA BILIRUBIN DIPSTICK (test NEGATIVE NEG code = BILU) UA KETONE DIPSTICK (test code NEGATIVE NEG = KETU) UA SPECIFIC GRAVITY (test 1.018 1.001-1.035 N code = SGU) UA BLOOD DIPSTICK (test code NEG NEG = PALOMA) UA PH DIPSTICK (test code = 7.0 5-9 LARY) UA PROTEIN DIPSTICK (test 2+ NEG A code = PROU) UA UROBILINIOGEN DIPSTICK NEGATIVE mg/dL NEG (test code = URO) UA NITRITE DIPSTICK (test NEG NEG code = DENAE) UA LEUKOCYTE ESTERASE 1+ NEG A DIPSTICK (test code = LEUU) UA WBC (test code = WBCU) 3-5 #/hpf NONE SEEN A UA RBC (test code = RBCU) 0-2 #/hpf NONE SEEN UA EPITHELIAL CELLS (test RARE #/HPF RARE-FEW code = EPIU) UA BACTERIA (test code = RARE /HPF RARE-FEW BACU) UA MUCUS (test code = MUCU) RARE NONE SEEN PROTHROMBIN [id number] 17:16:00 Test Item Value Reference Range Interpretation Comments PROTHROMBIN TIME PATIENT (test code 10.6 secs 10.4-12.4 N = PTP) THROMBOPLASTIN TIME [id number] 17:16:00 Test Item Value Reference Range Interpretation Comments THROMBOPLASTIN TIME PARTIAL (test 28.6 secs 22-38 N code = PTT) [id number] 17:16:00 Test Item Value Reference Range Interpretation Comments FIBRINOGEN (test code = FIB) 361 mg/dL 309-518 N CBC W/AUTO [id number] 16:53:00 Test Item Value Reference Range Interpretation Comments WHITE BLOOD CELL (test code = WBC) 10.2 K/mm3 6.6-12.1 N RED BLOOD CELL (test code = RBC) 3.93 M/mm3 3.45-5.01 N HEMOGLOBIN (test code = HGB) 11.4 g/dL 10.7-13.9 N HEMATOCRIT (test code = HCT) 34.8 % 32.1-42.1 N MEAN CELL VOLUME (test code = MCV) 89 fL 84.1-94.8 N MEAN CELL HGB (test code = MCH) 29.0 pg 27-35 N MEAN CELL HGB CONCETRATION (test 32.8 gm/dL 32.2-34.1 N code = MCHC) RED CELL DISTRIBUTION WIDTH (test 13.0 % 12.4-16.5 N code = RDW) PLATELET COUNT (test code = PLT) 158 K/mm3 133-385 N IMMATURE PLATELET FRACTION (test 0.0 % 0.0-10.8 N code = IPF) MEAN PLATELET VOLUME (test code = 12.8 fl 9.1-12.7 H MPV) NEUTROPHIL % (test code = NT%) 65.1 % 56.5-79.4 N LYMPHOCYTE % (test code = LY%) 25.4 % 14.3-34.3 N MONOCYTE % (test code = MO%) 7.9 % 5.1-10.4 N EOSINOPHIL % (test code = EO%) 1.0 % 0.1-3.0 N BASOPHIL % (test code = BA%) 0.2 % 0.1-1.0 N NEUTROPHIL # (test code = NT#) 6.6 K/mm3 LYMPHOCYTE # (test code = LY#) 2.6 K/mm3 MONOCYTE # (test code = MO#) 0.8 K/mm3 EOSINOPHIL # (test code = EO#) 0.10 K/mm3 BASOPHIL # (test code = BA#) 0.0 K/mm3 RBC MORPHOLOGY REQUIRED (test code NORMAL NORMAL = RBCM) PLATELET MORPHOLOGY REQUIRED (test NORMAL NORMAL code = PLTMR) - US FET BIO PH IL W/O [id number] 16:19:00 Patient Name: KATHARINE SHRESTHA Unit No: [id number] EXAMS: CPT CODE: [id number] FET BIO PH IL W/O NST [address] [facility] [address] [place], [place] [address] BIOPHYSICAL PROFILE ULTRASOUND REPORT Pat. Name: KATHARINE SHRESTHA Pat. No: [id number] Study Date: 06/02/2019 3:42pm , Age: 1 2000, 18 Pregnancies: 1 LMP:10/28/2018 GA by LMP: 31w0d GA Selected: 30w2d (From Known E) KYLIE: 08/09/2019 Referring MD: MAR SINGLETARY Biological Scientist: Shazia Ward RDMS CPT4: [id number] Admitting MD: KERI AUGUSTIN Hist/Ind: scan1 dfm Cervical Length: 3.2 cm Heart Rate: 153 bpm Amniotic Fluid Index: 14.5cm (08.9-23.5) Q1: 4.0cm Q2: 4.0cm Q3: 3.0cm Q4: 3.5cm Biophysical Profile: 03/27 Breathin Tone: 2 Movement: 2 AFV: 2 MATERNAL ANATOMY Ovaries LxHxW (cm) Right 2.7 x 1.5 x 1.4 Vol: 3.0cc Left 3.5 x 1.8 x 2.6 Vol: 8.6cc CLINICAL SUMMARY Type of Gestation: Ver[place] Intrauterine in vertex presentation. motion and organs seen: heart motion seen somatic activity observed body and limb movements seen Regular cardiac rhythm observed Placental location: Anterior Placental maturity : Grade 2 There is no evidence of placenta previa. Amniotic fluid volume is normal. Uterus and adnexa: No significant abnormality is seen. Thank you for allowing us to participate in the care of this patient. Katiana Rodriguez M.D. [facility] NAME:[facility] Radiology Department PHYS: Mar Aguirre III, MD [address] : 2000 AGE: 18 SEX: F [place] [address] LOC: MikeJOSH PHONE #: [phone] EXAM DATE: 06/02/2019 STATUS: REG ER FAX #: [phone] RAD NO: Page 1 Signed Report (CONTINUED) Patient Name: KATHARINE SHRESTHA Unit No: [id number] EXAMS: CPT CODE: [id number] US FET BIO PH IL W/O NST 71647 <Continued> Electronic Signature 06/02/2019 04:19pm at 1619 Reported and signed by: Maeve Rodriguez MD CC: Keri Augustin MD; Mar Singletary III, MD Technologist: Shazia Ward RDMS Probe: Trnscrbd D/ (1619) [place] Print D/T: S: 06/02/2019 (3372) [facility] NAME: [facility] Radiology Department PHYS: Mar Aguirre III, MD [address] : 2000 AGE: 18 SEX: F [place] [address] LOC: MikeJOSH PHONE #: [phone] EXAM DATE: 06/02/2019 STATUS: REG ER FAX #: [phone] RAD NO: Page 2 Signed Report Patient Name: KATHARINE SHRESTHA Unit No: [id number] EXAMS: CPT CODE: [id number] US FET BIO PH PRW/O NST 59872 <Continued> [facility] NAME: KATHARINE SHRESTHA Radiology Depa rtment PHYS: Mar Aguirre III, MD [address] : 2000 AGE: 18 SEX: [place], [place] [address] LOC: MikeJOSH PHONE #: [phone] EXAM DATE: 06/02/2019 STATUS: REG ER FAX #: [phone] RAD NO: Page 3 Signed Report
[2021-08-09 19:33] LABS: Urine Blood Trace-lysed (Negative); Urine Glucose Negative (Negative); Urine Protein Negative (Negative); Urine Specific Gravity >=1.030 (1.005-1.030); Urine pH 5.5 (5.0-7.0)
[2021-08-09] MEDS ORDERED: ACETAMINOPHEN 325 MG TABLET ONE ×2 (19:49→21:33)
[2021-08-09 21:32] LABS: SARS-COV-2 RT PCR POSITIVE (NEGATIVE)
--- NOTE | 2021-08-09 22:45 | EDPHYS ---
Physician Documentation [facility] Name: Henny Ortega Age: 20 yrs Sex: Female : 2000 Arrival Date: 08/09/2021 Time: 18:26 Bed 19 Private MD: ED Physician Martin Luis HPI: 08/09 18:41 This 20 yrs old Black Female presents to ER via Ambulatory with complaints of Fever, jmm body aches. 18:41 The patient reports fever, not measured (subjective). Onset: The symptoms/episode jmm began/occurred gradually, 2 day(s) ago. Modifying factors: there are no obvious modifying factors. Associated signs and symptoms: Pertinent positives: chills, cough. The patient has not experienced similar symptoms in the past. 20-year-old female no no chronic medical conditions presents emerged department with complaints of cough, body aches, congestion. States that she believes she is around 7 weeks .. 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 - Social history:: Smoking status: Patient denies any tobacco usage or history of. ROS: 08/10 03:05 Constitutional: Positive for body aches, chills, fatigue. jmm Respiratory: Positive for cough. All other systems are negative. Exam: 03:05 Constitutional: This is a well developed, well nourished patient who is awake, alert, jmm and in no acute distress. Head/Face: atraumatic. Eyes: EOMI, no conjunctival erythema appreciated ENT: Moist Mucus Membranes Neck: Trachea midline, Supple Chest/axilla: Normal chest wall appearance and motion. Cardiovascular: Regular rate and rhythm. No edema appreciated Respiratory: Normal respirations, no respiratory distress appreciated Abdomen/GI: Non distended, soft Back: Normal ROM Skin: General appearance color normal MS/ Extremity: Moves all extremities, no obvious deformities appreciated, no edema noted to the lower extremities Neuro: Awake and alert, normal gait Psych: Behavior is normal, Mood is normal, Patient is cooperative and pleasant Vital Signs: 08/09 18:46 BP 131 / 71; Pulse 91; Resp 18; Pulse Ox 100% on R/A; Weight 58.97 kg; Height 5 ft. 1 lee in. (154.94 cm); 19:41 Temp 100.2; kd3 21:19 BP 130 / 56; Pulse 82; Resp 18; Temp 100.5; Pulse Ox 98% on R/A; kd3 18:46 Body Mass Index 24.56 (58.97 kg, 154.94 cm) lee MDM: 18:41 Patient medically screened. [facility] 22:43 Data reviewed: vital signs, nurses notes. Counseling: I had a detailed discussion with petra the patient and/or guardian regarding: the historical points, exam findings, and any diagnostic results supporting the discharge/admit diagnosis, lab results, the need for outpatient follow up, to return to the emergency department if symptoms worsen or persist or if there are any questions or concerns that arise at home. ED course: Patient is alert and non toxic in appearance in the ED. No signs of resp distress. Patient is advised to follow up with obgyn. Patient understood and agrees with the plan of care. . 08/09 19:33 Order name: Urine Dipstick-Ancillary; Complete Time: 19:34 [facility] 08/09 19:35 Order name: Strep; Complete Time: 21:34 [facility] 08/09 20:40 Order name: COVID-19/FLU A+B; Complete Time: 21:34 [facility] 08/09 21:34 Order name: Throat Culture [facility] 08/09 18:51 Order name: Urine Dipstick-Ancillary (obtain specimen); Complete Time: 19:36 [facility] 08/09 18:51 Order name: Urine Test (obtain specimen); Complete Time: 19:36 [facility] Administered Medications: 19:56 Drug: Tylenol 650 mg Route: PO; kd3 21:41 Drug: Tylenol 325 mg Route: PO; kd3 Disposition Summary: 08/09/21 22:44 Discharge Ordered Location: Home [facility] Condition: Stable [facility] Diagnosis - Coronavirus infection, unspecified [facility] Followup: [facility] - With: Private Physician - When: 2 - 3 days - Reason: Recheck today's complaints, Continuance of care, Re-evaluation by your physician Discharge Instructions: - Discharge Summary Sheet [facility] - COVID-19 [facility] Forms: - Medication Reconciliation Form [facility] - Thank You Letter [facility] - Antibiotic Education [facility] - Prescription Opioid Use [facility] Signatures: Dispatcher [employer] EDMartin Capone MD MD cha Mickail, Joel, PA PA jmm Doucette, Kyli, RN RN kd3 AngelicarCassandra Corrections: (The following items were deleted from the chart) 20:39 19:36 Influenza Screen (A \T\ B)+BA.LAB.BRZ ordered. EDMS EDMS 20:40 19:36 SARS-COV-2 RT PCR+MOL.LAB.BRZ ordered. EDMS EDMS
--- NOTE | 2021-08-09 22:45 | ER ---
Nurse's Notes [facility] Name: Henny Ortega Age: 20 yrs Sex: Female : 2000 Arrival Date: 08/09/2021 Time: 18:26 Bed 19 Private MD: Diagnosis: Coronavirus infection, unspecified Presentation: 08/09 18:46 Chief complaint: Patient states: fever. chills and bodyaches. Coronavirus screen: lee Vaccine status: Patient reports receiving the 2nd dose of the covid vaccine. Ebola Screen: Patient denies travel to an Ebola-affected area in the 21 days before illness onset. No symptoms or risks identified at this time. Initial Sepsis Screen: Does the patient meet any 2 criteria? No. Patient's initial sepsis screen is negative. Does the patient have a suspected source of infection? No. Patient's initial sepsis screen is negative. Risk Assessment: Do you want to hurt yourself or someone else? Patient reports no desire to harm self or others. Onset of symptoms was August 09, 2021. 18:46 Method Of Arrival: Ambulatory lee 18:46 Acuity: LENCHO 3 lee Triage Assessment: 18:47 General: Appears in no apparent distress. Behavior is. Pain: Complains of pain in head, lee neck, chest, abdomen, pelvis, right arm, left arm, right leg, left leg, back of head, back of neck, back of left arm, back of right arm, posterior chest, buttocks, back of left leg, back of right leg and back. Musculoskeletal: Reports Pain is 6 out of 10 on a pain scale. generalize pain. 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 - Social history:: Smoking status: Patient denies any tobacco usage or history of. Screenin:48 Abuse screen: Denies threats or abuse. Denies injuries from another. Nutritional lee screening: No deficits noted. Tuberculosis screening: No symptoms or risk factors identified. Fall Risk None identified. Assessment: 18:48 General: Appears in no apparent distress. Behavior is calm, cooperative. Pain: lee Complains of pain in head, neck, chest, abdomen, pelvis, right arm, left arm, right leg, left leg, back of head, back of neck, back of left arm, back of right arm, posterior chest, buttocks, back of left leg, back of right leg and back. Vital Signs: 18:46 BP 131 / 71; Pulse 91; Resp 18; Pulse Ox 100% on R/A; Weight 58.97 kg; Height 5 ft. 1 lee in. (154.94 cm); 19:41 Temp 100.2; kd3 21:19 BP 130 / 56; Pulse 82; Resp 18; Temp 100.5; Pulse Ox 98% on R/A; kd3 18:46 Body Mass Index 24.56 (58.97 kg, 154.94 cm) lee ED Course: 18:26 Patient arrived in ED. rg4 18:40 Wing Callahan PA is PHCP. [facility] 18:40 Martin Luis MD is Attending Physician. [facility] 18:47 Triage completed. lee 18:48 Patient has correct armband on for positive identification. Bed in low position. lee 18:48 No provider procedures requiring assistance completed. lee 18:50 Arm band placed on right wrist. lee 19:04 Cindy Mckeon, RN is Primary Nurse. kd3 19:57 Strep Sent. kd3 Administered Medications: 19:56 Drug: Tylenol 650 mg Route: PO; kd3 21:41 Drug: Tylenol 325 mg Route: PO; kd3 Outcome: 22:44 Discharge ordered by . [facility] 23:05 Patient left the ED. lp1 Signatures: Wing Callahan PA PA jmm Pena, Laura, RN RN lp1 Destiny Temple 4 Cindy Mckeon RN RN kd3 Triny-StagerCassandra Corrections: (The following items were deleted from the chart) 20:39 19:57 Influenza Screen (A \T\ B)+BA.LAB.BRZ drawn and sent. kd3 EDMS 20:40 19:57 SARS-COV-2 RT PCR+MOL.LAB.BRZ drawn and sent. kd3 EDMS
[2021-08-09 23:12] VITALS: BP 130/56; TEMP 100.5; O2SAT 98
== END 2021-08-09 23:05 | disposition home or self-care (01) ==
LOC: ER 18:23
DX: O98.511 Other viral diseases complicating pregnancy, first trimester (principal); U07.1 COVID-19; Z3A.01 Less than 8 weeks gestation of pregnancy
CPT/HCPCS: 0240U; 81003; 87070; 87081; 99283